=== PATIENT | female | born 1930 | race Caucasian/White ===

== ENCOUNTER 2018-03-07 16:53 | Observation (INO) ==
[2018-03-07] MEDS ORDERED: Sodium Chlor 0.9% Inj 500 ML IV.SIG SCH (18:00)
[2018-03-07 18:38] LABS: Baso # (Auto) 0.1 th/mm3 (0.0-0.2); Baso % (Auto) 0.6 % (0.0-2.0); Eos % (Auto) 0.2 % (0.0-4.0); Hematocrit 26.7 % (35.0-46.0); Hemoglobin 9.9 gm/dL (11.6-15.3); Lymph # (Auto) 2.4 th/mm3 (1.0-4.8); Lymph % (Auto) 16.9 % (9.0-44.0); Mean Corpuscular Hemoglobin 34.2 pg (27.0-34.0); Mean Corpuscular Volume 92.6 fL (80.0-100.0); Mean Platelet Volume 7.5 fL (7.0-11.0); Mono # (Auto) 1.3 th/mm3 (0.0-0.9); Neut # (Auto) 10.5 th/mm3 (1.8-7.7); Neut % (Auto) 73.3 % (16.0-70.0); Platelet Count 384 th/mm3 (150-450); Red Blood Count 2.89 mil/mm3 (4.00-5.30); Red Cell Distribution Width 13.7 % (11.6-17.2); White Blood Count 14.3 th/mm3 (4.0-11.0)
--- NOTE | 2018-03-07 18:41 | XR ---
EXAM DATE: 03/07/2018 5:36 PM EDT AGE/SEX: 87 years / Female INDICATIONS: Short of breath. CLINICAL DATA: This is the patient's initial encounter. Patient reports that signs and symptoms have been present for 1 day and indicates a pain score of 0/10. MEDICAL/SURGICAL HISTORY: Non-responsive. Non-responsive. COMPARISON: No prior exams available for comparison. FINDINGS: Trace atelectasis seen left base. No pleural effusion demonstrated. No pneumothorax. Heart size within normal limits. Thoracic aorta is tortuous and atherosclerotic. CONCLUSION: Mild left base atelectasis. Electronically signed by: Geraldo Menjivar MD 03/07/2018 6:39 PM EDT
[2018-03-07 18:45] LABS: Bacteria,Urine Rare /hpf; Bilirubin,Urine Negative (Negative); Clarity,Urine Clear (Clear); Color,Urine Yellow (Yellw/Straw); Glucose,Urine (UA) Negative (Negative); Hyaline Casts,Urine 3 /lpf (0-3); Leukocyte Esterase,Urine Small (Negative); Nitrite,Urine Negative (Negative); Specific Gravity,Urine 1.008 (1.002-1.035)
[2018-03-07 19:02] LABS: Alanine Aminotransferase 25 U/L (10-53); Albumin 2.9 g/dL (3.4-5.0); Anion Gap 14 meq/L (5-15); Aspartate Aminotransferase 34 U/L (15-37); Blood Urea Nitrogen 64 mg/dL (7-18); Calcium 8.9 mg/dL (8.5-10.1); Chloride 93 meq/L (98-107); Glomerular Filtration Rate 21 mL/min (>89); Glucose,Random 115 mg/dL (74-106); Sodium 131 meq/L (136-145)
[2018-03-07 19:08] LABS: Potassium 2.9 meq/L (3.5-5.1)
[2018-03-07 19:14] LABS: Alkaline Phosphatase 167 U/L (45-117); Total Protein 6.5 g/dL (6.4-8.2); Troponin I 0.11 ng/mL (0.02-0.05)
--- NOTE | 2018-03-07 19:29 | CT ---
EXAM DATE: 03/07/2018 6:30 PM EDT AGE/SEX: 87 years / Female INDICATIONS: Altered mental status. CLINICAL DATA: This is the patient's initial encounter. Patient reports that signs and symptoms have been present for 1 day and indicates a pain score of 0/10. MEDICAL/SURGICAL HISTORY: None. None. RADIATION DOSE: 56.35 CTDI (mGy) COMPARISON: No prior exams available for comparison. TECHNIQUE: CT of the head without contrast. Using automated exposure control and adjustment of the mA and/or kV according to patient size, radiation dose was kept as low as reasonably achievable to ob tain optimal diagnostic quality images. DICOM format image data is available electronically for revi ew and comparison. FINDINGS: Cerebrum: The ventricles are normal for age. No evidence of midline shift, mass lesion, hemorrhage or acute infarction. No extraaxial fluid collections are seen. Chronic appearing low-attenuation see n in the periventricular white matter. Posterior Fossa: The cerebellum and brainstem are intact. The 4th ventricle is midline. The cerebe llopontine angle is unremarkable. Extracranial: The visualized portion of the orbits is intact. Skull: The calvaria is intact. No evidence of skull fracture. CONCLUSION: 1. No acute intracranial abnormality. 2. Chronic white matter changes. . Electronically signed by: Geraldo Menjivar MD 03/07/2018 7:28 PM EDT
[2018-03-07] MEDS ORDERED: Aspirin 325 MG Tablet PO ONE (19:52)
--- NOTE | 2018-03-07 20:04 | ED ---
HPI General Chief complaint: Recheck/Abnormal Lab/Rx Stated complaint: Abnormal Labs Time Seen by Provider: 03/07/18 17:19 Source: patient, RN notes reviewed, old records reviewed and other (med one) Mode of arrival: other (med one) Limitations: altered mental status History of Present Illness HPI narrative: She is now been acting herself. Apparently per the blood work she was [id number] female that presents to the ED for evaluation of abnormal labs. Patient was sent here by [facility] for evaluation of this. Patient came here from a half-way. Apparently she had blood work that showed that she was hyponatremic and had a slightly elevated white blood cell count. Patient herself has no complaints and states that she is cold and she wants that she. Other than this she does not really complain of anything. No abdominal pain. She does state however that she feels "not well". When asked what she means by this she will not really give me any information. Per the report from the half-way apparently she has been more confused and altered. She has a history of blindness, COPD as well as hypertension. Unclear as to how long the confusion has been going but per report given probably couple of days. Patient herself does not really complain of anything other than wanting her sheets. History is somewhat hard to get from the patient. She denies any chest pain or shortness of breath. No diarrhea. No bowel movement issues. No fevers chills or sweats. No cough or runny nose. Related Data Home Medications Medication Instructions Recorded Confirmed acetaminophen [Tylenol] 650 mg PO Q4H PRN 03/07/18 03/07/18 albuterol sulfate [Ventolin HFA] 1 puff INHALATION Q2HR PRN 03/07/18 03/07/18 aspirin 81 mg PO DAILY 03/07/18 03/07/18 cholecalciferol (vitamin D3) 1,000 unit PO DAILY 03/07/18 03/07/18 [Vitamin D3] fludrocortisone 0.1 mg PO DAILY 03/07/18 03/07/18 furosemide [Lasix] 40 mg PO DAILY 03/07/18 03/07/18 ginkgo biloba 60 mg PO DAILY 03/07/18 03/07/18 ibuprofen 600 mg PO TID 03/07/18 03/07/18 ipratropium-albuterol 3 ml INHALATION Q3HR PRN 03/07/18 03/07/18 loperamide 2 mg PO Q6HR PRN 03/07/18 03/07/18 metolazone 5 mg PO 2XWEEK 03/07/18 03/07/18 metoprolol tartrate 50 mg PO BID 03/07/18 03/07/18 multivitamin 1 tab PO DAILY 03/07/18 03/07/18 potassium chloride 20 meq PO TID 03/07/18 03/07/18 simethicone 160 mg PO Q6HR PRN 03/07/18 03/07/18 sodium chloride 1,000 mg PO TID 03/07/18 03/07/18 temazepam [Restoril] 15 mg PO HS 03/07/18 03/07/18 trazodone 75 mg PO HS 03/07/18 03/07/18 umeclidinium-vilanterol [Anoro 1 puff INHALATION DAILY 03/07/18 03/07/18 Ellipta] Allergies Allergy/AdvReac Type Severity Reaction Status Date / Time morphine Allergy Unknown unknown Verified 03/07/18 17:36 Sulfa (Sulfonamide Allergy Unknown unknown Verified 03/07/18 17:36 Antibiotics) Review of Systems ROS: all other systems reviewed are negative [facility] Medical History Medical History Blind (Acute) COPD (chronic obstructive pulmonary disease) (Acute) Chronic kidney disease (CKD) (Acute) Emphysema of lung (Acute) HTN (hypertension) (Acute) Mitral valve insufficiency (Acute) Surgical history unknown (Acute) Family History Family History Other Family history unknown Social History Social History Smoking Status: Unknown if ever smoked How Often Do You Have a Drink Containing Alcohol: Unable to Obtain Recent Travel in [place] within the Last 8 Weeks: No Recent Out of Country Travel within the Last 8 Weeks: No Immunization History Tetanus Immunization: Unable to Assess Hx Influenza Vaccine This Season: Unable to Assess Exam Narrative Exam Narrative: GENERAL: Well appearing SKIN: Focused skin assessment warm/dry. HEAD: Atraumatic. Normocephalic. EYES: Pupils equal and round. No scleral icterus. No injection or drainage. ENT: No nasal bleeding or discharge. Mucous membranes pink and moist. Tongue is midline. No uvula deviation. NECK: Trachea midline. No JVD. CARDIOVASCULAR: Regular rate and rhythm. No murmur appreciated. RESPIRATORY: No accessory muscle use. Clear to auscultation. Breath sounds equal bilaterally. GASTROINTESTINAL: Abdomen soft, non-tender, nondistended. Hepatic and splenic margins not palpable. MUSCULOSKELETAL: No obvious deformities. No clubbing. No cyanosis. No edema. Full range of motion of the upper and lower extremities bilaterally. 2+ pulses bilaterally. NEUROLOGICAL: Awake and alert. No obvious cranial nerve deficits. Motor grossly within normal limits. Normal speech. PSYCHIATRIC: Altered mood and affect; insight and judgment normal. Course Initial Documented Vital Signs Temperature 98.4 F 03/07/18 17:40 Pulse Rate 75 03/07/18 17:40 Respiratory Rate 19 03/07/18 17:40 Blood Pressure 140/60 03/07/18 17:40 Pulse Oximetry 100 03/07/18 17:40 Last Documented Vital Signs Temperature 98.4 F 03/07/18 17:40 Pulse Rate 75 03/07/18 19:00 Respiratory Rate 24 03/07/18 19:00 Blood Pressure 158/69 H 03/07/18 19:00 Pulse Oximetry 98 03/07/18 19:00 Medical Decision Making THUAN Attestation THUAN supervised visit: Yes Attestation: I, Dr. Tang, have reviewed the advance practice practitioner's documentation and am in agreement, met with the patient face to face, made the diagnosis, and the medical decision making was done by me. The patient was initially evaluated by Vipul, the THUAN. Please see their complete history and physical. *My assessment and Findings: The patient presents with a history of being sent by [employer] to the emergency department related to abnormal labs that include hyponatremia with altered mentation. During the course of the patient's emergency department visit, the patient's history, examination, and differential diagnosis were reviewed with the patient. The patient was placed on a advertising specialist with oximetry and frequent blood pressure monitoring. The patient had IV access obtained and blood work sent for analysis. The patient was initially provided normal saline at 500 mL bolus x1, after laboratory studies were reviewed potassium was administered p.o. for hypokalemia. For minimally elevated troponin I aspirin 325 mg was administered p.o. x1, for bacteriuria Rocephin 1 g IV was administered. The patient's studies were reviewed and remarkable for .a leukocytosis of 14.3 with a left shift, neutrophil predominance of 73.3, Sodium on chemistry was 131 , BUN is 64, creatinine 2.24 which is worsened compared to prior levels consistent with an acute kidney injury, lactic acid within normal limits at 1.2 , troponin I 0.11 which could be related to the patient's renal insufficiency. This will be trended. Urinalysis shows small leukocyte esterase rare bacteria. A chest x-ray showed mild left base atelectasis, CT scan of the brain showed no acute abnormality. The patient will be admitted to the hospital for altered mentation, acute on chronic kidney injury, leukocytosis with bacteriuria. The patient's results were discussed with the patient, including the plan of care. I explained that further testing and/ or monitoring is indicated based on the patient's history, examination, and/ or laboratory findings. Therefore, I recommended admission for additional evaluation. The patient expressed understanding and was agreeable with this plan. The patient was admitted to the hospital in guarded condition and sent to a bed under the care of the [facility] service. MDM Narrative Medical decision making narrative: 87-year-old female that presents to the ED for evaluation of confusion abnormal labs. Patient was properly examined and was found to have signs and symptoms of unclear etiology. She does appear to be somewhat altered but unclear as to how long this been going on for. Labs and imaging were ordered. Labs and imaging were positive for what appears to be bacteriuria, elevated troponin and what appears to be chronic kidney disease. Unclear as to the source of confusion but could be related to infection. Do not have anything to evaluate for the positive troponin and likely secondary to the kidney disease. I do recommend trending troponins as she is altered. Patient was started ceftriaxone and fluids given. Patient will be admitted to Dr. Castillo who agreed to admission for office. Medical Screen Exam Complete: Yes Emergency Medical Condition: Yes Differential Diagnosis Differential Diagnosis: Altered mental status versus UTI versus infection versus electron abnormality versus n STEMI versus STEMI Medical Records Medical records reviewed: Yes I reviewed the patient's medical records. Lab Data Lab results reviewed: Yes I reviewed the patient's lab results. Lab results narrative: UA did show some bacteria otherwise unremarkable. Lactic acid within normal limits. Troponin slightly elevated. Result diagrams: 03/07/18 18:00 03/07/18 18:00 Lab Results 03/07/18 03/07/18 03/07/18 Range/Units 18:00 18:00 18:05 WBC 14.3 H (4.0-11.0) th/mm3 RBC 2.89 L (4.00-5.30) mil/mm3 Hgb 9.9 L (11.6-15.3) gm/dL Hct 26.7 L (35.0-46.0) % MCV 92.6 (80.0-100.0) fL MCH 34.2 H (27.0-34.0) pg MCHC 37.0 H (32.0-36.0) % RDW 13.7 (11.6-17.2) % Plt Count 384 (150-450) th/mm3 MPV 7.5 (7.0-11.0) fL Prelim Diff (Auto) Slide review pending Neut % (Auto) 73.3 H (16.0-70.0) % Lymph % (Auto) 16.9 (9.0-44.0) % Schleicher % (Auto) 9.0 H (0.0-8.0) % Eos % (Auto) 0.2 (0.0-4.0) % Baso % (Auto) 0.6 (0.0-2.0) % Neut # (Auto) 10.5 H (1.8-7.7) th/mm3 Lymph # (Auto) 2.4 (1.0-4.8) th/mm3 Schleicher # (Auto) 1.3 H (0.0-0.9) th/mm3 Eos # (Auto) 0.0 (0.0-0.4) th/mm3 Baso # (Auto) 0.1 (0.0-0.2) th/mm3 WBC Differential . Diff Scan Auto diff confirmed Differential Comment . Sodium 131 L (136-145) meq/L Potassium 2.9 L* (3.5-5.1) meq/L Chloride 93 L (98-107) meq/L Carbon Dioxide 24.0 (21.0-32.0) meq/L Anion Gap 14 (5-15) meq/L BUN 64 H (7-18) mg/dL Creatinine 2.24 H (0.50-1.00) mg/dL Estimated GFR 21 L (>89) mL/min Random Glucose 115 H (74-106) mg/dL Lactic Acid (0.4-2.0) mmol/L Calcium 8.9 (8.5-10.1) mg/dL Total Bilirubin 0.4 (0.2-1.0) mg/dL AST 34 (15-37) U/L ALT 25 (10-53) U/L Alkaline Phosphatase 167 H (45-117) U/L Troponin I 0.11 H (0.02-0.05) ng/mL Total Protein 6.5 (6.4-8.2) g/dL Albumin 2.9 L (3.4-5.0) g/dL TSH 1.220 (0.358-3.740) uIU/mL Urine Color Yellow (Yellw/Straw) Urine Clarity Clear (Clear) Urine pH 5.0 (5.0-8.5) Ur Specific [place] 1.008 (1.002-1.035) Urine Protein Negative (Neg-Trace) mg/dL Urine Glucose (UA) Negative (Negative) mg/dL Urine Ketones Negative (Negative) mg/dL Urine Occult Blood Negative (Negative) Urine Nitrate Negative (Negative) Urine Bilirubin Negative (Negative) Urine Urobilinogen Less than 2 (Less than 2) mg/dL Ur Leukocyte Esterase Small H (Negative) Urine WBC 2 (0-5) /hpf Urine Bacteria Rare H (None) /hpf Hyaline Casts 3 (0-3) /lpf Micro UA Comment Cath-culture ind Ur Microscopic Review Not Reportable Urine Culture Comments Cath-cult indicated 03/07/18 Range/Units 19:30 WBC (4.0-11.0) th/mm3 RBC (4.00-5.30) mil/mm3 Hgb (11.6-15.3) gm/dL Hct (35.0-46.0) % MCV (80.0-100.0) fL MCH (27.0-34.0) pg MCHC (32.0-36.0) % RDW (11.6-17.2) % Plt Count (150-450) th/mm3 MPV (7.0-11.0) fL Prelim Diff (Auto) Neut % (Auto) (16.0-70.0) % Lymph % (Auto) (9.0-44.0) % Schleicher % (Auto) (0.0-8.0) % Eos % (Auto) (0.0-4.0) % Baso % (Auto) (0.0-2.0) % Neut # (Auto) (1.8-7.7) th/mm3 Lymph # (Auto) (1.0-4.8) th/mm3 Schleicher # (Auto) (0.0-0.9) th/mm3 Eos # (Auto) (0.0-0.4) th/mm3 Baso # (Auto) (0.0-0.2) th/mm3 WBC Differential Diff Scan Differential Comment Sodium (136-145) meq/L Potassium (3.5-5.1) meq/L Chloride (98-107) meq/L Carbon Dioxide (21.0-32.0) meq/L Anion Gap (5-15) meq/L BUN (7-18) mg/dL Creatinine (0.50-1.00) mg/dL Estimated GFR (>89) mL/min Random Glucose (74-106) mg/dL Lactic Acid 1.2 (0.4-2.0) mmol/L Calcium (8.5-10.1) mg/dL Total Bilirubin (0.2-1.0) mg/dL AST (15-37) U/L ALT (10-53) U/L Alkaline Phosphatase (45-117) U/L Troponin I (0.02-0.05) ng/mL Total Protein (6.4-8.2) g/dL Albumin (3.4-5.0) g/dL TSH (0.358-3.740) uIU/mL Urine Color (Yellw/Straw) Urine Clarity (Clear) Urine pH (5.0-8.5) Ur Specific [place] (1.002-1.035) Urine Protein (Neg-Trace) mg/dL Urine Glucose (UA) (Negative) mg/dL Urine Ketones (Negative) mg/dL Urine Occult Blood (Negative) Urine Nitrate (Negative) Urine Bilirubin (Negative) Urine Urobilinogen (Less than 2) mg/dL Ur Leukocyte Esterase (Negative) Urine WBC (0-5) /hpf Urine Bacteria (None) /hpf Hyaline Casts (0-3) /lpf Micro UA Comment Ur Microscopic Review Urine Culture Comments Imaging Data Attestation: I personally reviewed and interpreted this imaging study as follows : Radiologist's impression: Chest X-Ray 03/07/18 17:36 CONCLUSION: Mild left base atelectasis. Head CT 03/07/18 17:36 CONCLUSION: 1. No acute intracranial abnormality. 2. Chronic white matter changes. . ECG Data Attestation: I personally reviewed and interpreted this ECG as follows: Interpretation: EKG showed sinus rhythm with no sign of acute ischemia or arrhythmia. No sign of ST elevation. Discharge Plan Discharge Disposition Patient Disposition: 30 Still Patient Discharge Details Diagnosis: Altered mental status, Bacteriuria, Elevated troponin I level Physicians Team ED Provider: Cris Tang ED Midlevel Provider: Vipul Barnard Primary Care Provider: Marcelino Mosquera Attending Provider: Yaneli Castillo Status ED Status: Admitted Observation Patient
[2018-03-07] MEDS ORDERED: Bisacodyl 10 MG Supp RECTAL PRN (20:43)
[2018-03-07] MEDS ORDERED: Acetaminophen 325 MG Tablet PO PRN (20:43)
--- NOTE | 2018-03-07 21:01 | P.HP ---
History of Present Illness Service: [facility] Primary Care Physician: Marcelino Mosquera MD History of Present Illness: 87-year-old female with a past medical history significant for blindness, chronic kidney disease, COPD and hypertension presents to the emergency department for the evaluation of altered mental status abnormal outpatient laboratory values. The patient was in her care home facility when outpatient lab work was done that showed hyponatremia and a mild leukocytosis. Per senior care reports, the patient is also been acting more confused over the past 2 days. During her interview, the patient states that she feels "fine ". She does not know why she is in the hospital. She is oriented to location, self and year. She denies any chest pain or shortness of breath. No abdominal pain. No dysuria. No nausea/vomiting/diarrhea. No fever/chills. No lateralizing signs/symptoms. Of note, the patient's son was contacted who stated that the patient has been acting erratically since losing her oldest daughter approximately 1 month ago. He states that she has had poor oral intake and poor sleep since that time. Review of Systems All other systems reviewed negative except as stated in HPI PMFSH - History History Provided By: Patient - Medical History Medical History: Medical History (Last Updated 03/07/18 @ 20:49 by Yaneli Castillo MD) Blind COPD (chronic obstructive pulmonary disease) Chronic kidney disease (CKD) Emphysema of lung HTN (hypertension) Mitral valve insufficiency Surgical history unknown - Family History Family History: Family History (Last Updated 03/07/18 @ 20:49 by Yaneli Castillo MD) Other Family history unknown - Tobacco History Smoking Status: Unknown if ever smoked - Alcohol History How Often Do You Have a Drink Containing Alcohol: Unable to Obtain - Travel History Recent Travel in the [facility] Within the Last 8 Weeks: No Recent Travel Out of the Country Within the Last 8 Weeks: No - Immunization History Tetanus Immunization: Unable to Assess Hx Influenza Vaccine This Season: Unable to Assess Medications and Allergies Active Medications: Active Medications Sodium Chloride (Ns Inj) 500 mls @ 0 mls/hr IV.SIG BOLUS RADHA Last Infusion: 03/07/18 20:32 Dose: Infused Allergies Allergy/AdvReac Type Severity Reaction Status Date / Time morphine Allergy Unknown unknown Verified 03/07/18 17:36 Sulfa (Sulfonamide Allergy Unknown unknown Verified 03/07/18 17:36 Antibiotics) Home Medications Medication Instructions Recorded Confirmed Type acetaminophen [Tylenol] 650 mg PO Q4H PRN 03/07/18 03/07/18 History albuterol sulfate [Ventolin HFA] 1 puff INHALATION Q2HR PRN 03/07/18 03/07/18 History aspirin 81 mg PO DAILY 03/07/18 03/07/18 History cholecalciferol (vitamin D3) 1,000 unit PO DAILY 03/07/18 03/07/18 History [Vitamin D3] fludrocortisone 0.1 mg PO DAILY 03/07/18 03/07/18 History furosemide [Lasix] 40 mg PO DAILY 03/07/18 03/07/18 History ginkgo biloba 60 mg PO DAILY 03/07/18 03/07/18 History ibuprofen 600 mg PO TID 03/07/18 03/07/18 History ipratropium-albuterol 3 ml INHALATION Q3HR PRN 03/07/18 03/07/18 History loperamide 2 mg PO Q6HR PRN 03/07/18 03/07/18 History metolazone 5 mg PO 2XWEEK 03/07/18 03/07/18 History metoprolol tartrate 50 mg PO BID 03/07/18 03/07/18 History multivitamin 1 tab PO DAILY 03/07/18 03/07/18 History potassium chloride 20 meq PO TID 03/07/18 03/07/18 History simethicone 160 mg PO Q6HR PRN 03/07/18 03/07/18 History sodium chloride 1,000 mg PO TID 03/07/18 03/07/18 History temazepam [Restoril] 15 mg PO HS 03/07/18 03/07/18 History trazodone 75 mg PO HS 03/07/18 03/07/18 History umeclidinium-vilanterol [Anoro 1 puff INHALATION DAILY 03/07/18 03/07/18 History Ellipta] Exam Vital signs: Vital Signs 03/07/18 17:40 03/07/18 18:00 03/07/18 19:00 Temperature 98.4 F Pulse Rate 75 78 75 Respiratory Rate 19 16 24 Blood Pressure 140/60 158/60 H 158/69 H Pulse Oximetry 100 98 98 Intake & Output 03/07/18 03/07/18 03/08/18 06:59 18:59 06:59 Intake Total 500 / 500 Balance 500 / 500 Weight 80.385 kg Intake: IV 500 / 500 NS Inj 500 ML @ Wide Open IV. 500 / 500 SIG BOLUS [facility] Rx#:[id number] Narrative: Gen.: No acute distress Head: Normocephalic. Atraumatic. EENT: Pupils equal round and reactive to light. Nose without drainage. Airway intact. Throat without injection. Cardiovascular: Regular rate and rhythm. No murmurs, rubs or gallops. Respiratory: Lungs clear to auscultation bilaterally. No wheezes or rhonchi. Abdomen: Soft, nontender, nondistended. No peritoneal signs. Musculoskeletal: No gross deformities. No edema. Skin: No obvious rashes or erythema. Neuro: Sensory and motor grossly intact. Cranial nerves II through XII grossly intact. Oriented to person, place and time. Results - Labs CBC & Chem 7: 03/07/18 18:00 03/07/18 18:00 Labs: Laboratory Results - last 24 hr 03/07/18 03/07/18 03/07/18 18:00 18:00 18:05 WBC 14.3 H RBC 2.89 L Hgb 9.9 L Hct 26.7 L MCV 92.6 MCH 34.2 H MCHC 37.0 H RDW 13.7 Plt Count 384 MPV 7.5 Prelim Diff (Auto) Slide review pending Neut % (Auto) 73.3 H Lymph % (Auto) 16.9 [place] % (Auto) 9.0 H Eos % (Auto) 0.2 Baso % (Auto) 0.6 Neut # (Auto) 10.5 H Lymph # (Auto) 2.4 [place] # (Auto) 1.3 H Eos # (Auto) 0.0 Baso # (Auto) 0.1 WBC Differential . Diff Scan Auto diff confirmed Differential Comment . Sodium 131 L Potassium 2.9 L* Chloride 93 L Carbon Dioxide 24.0 Anion Gap 14 BUN 64 H Creatinine 2.24 H Estimated GFR 21 L Random Glucose 115 H Lactic Acid Calcium 8.9 Total Bilirubin 0.4 AST 34 ALT 25 Alkaline Phosphatase 167 H Troponin I 0.11 H Total Protein 6.5 Albumin 2.9 L TSH 1.220 Urine Color Yellow Urine Clarity Clear Urine pH 5.0 Ur Specific [place] 1.008 Urine Protein Negative Urine Glucose (UA) Negative Urine Ketones Negative Urine Occult Blood Negative Urine Nitrate Negative Urine Bilirubin Negative Urine Urobilinogen Less than 2 Ur Leukocyte Esterase Small H Urine WBC 2 Urine Bacteria Rare H Hyaline Casts 3 Micro UA Comment Cath-culture ind Ur Microscopic Review Not Reportable Urine Culture Comments Cath-cult indicated 03/07/18 19:30 WBC RBC Hgb Hct MCV MCH MCHC RDW Plt Count MPV Prelim Diff (Auto) Neut % (Auto) Lymph % (Auto) [place] % (Auto) Eos % (Auto) Baso % (Auto) Neut # (Auto) Lymph # (Auto) [place] # (Auto) Eos # (Auto) Baso # (Auto) WBC Differential Diff Scan Differential Comment Sodium Potassium Chloride Carbon Dioxide Anion Gap BUN Creatinine Estimated GFR Random Glucose Lactic Acid 1.2 Calcium Total Bilirubin AST ALT Alkaline Phosphatase Troponin I Total Protein Albumin TSH Urine Color Urine Clarity Urine pH Ur Specific [place] Urine Protein Urine Glucose (UA) Urine Ketones Urine Occult Blood Urine Nitrate Urine Bilirubin Urine Urobilinogen Ur Leukocyte Esterase Urine WBC Urine Bacteria Hyaline Casts Micro UA Comment Ur Microscopic Review Urine Culture Comments - Imaging Impressions Chest X-Ray 03/07/18 17:36 CONCLUSION: Mild left base atelectasis. Head CT 03/07/18 17:36 CONCLUSION: 1. No acute intracranial abnormality. 2. Chronic white matter changes. . Caprini VTE Risk Assessment Caprini VTE Risk Assessment: Moderate/High Risk (score >= 2) Caprini Risk Assessment Model: Point Value = 1 Point Value = 2 Point Value = 3 Point Value = 5 Age 41-60 Minor surgery BMI > 25 kg/m2 Swollen legs Varicose veins or History of unexplained or recurrent spontaneous Oral contraceptives or hormone replacement Sepsis (< 1 month) Serious lung disease, including pneumonia (< 1 month) Abnormal pulmonary function Acute myocardial infarction Congestive heart failure (< 1 month) History of inflammatory bowel disease Medical patient at bed rest Age 61-74 Arthroscopic surgery Major open surgery (> 45 min) Laparoscopic surgery (> 45 min) Malignancy Confined to bed (> 72 hours) Immobilizing plaster cast Central venous access Age >= 75 History of VTE Family history of VTE Factor V Leiden Prothrombin [id number] Lupus anticoagulant Anticardiolipin antibodies Elevated serum homocysteine Heparin-induced thrombocytopenia Other congenital or acquired thrombophilia Stroke (< 1 month) Elective arthroplasty Hip, pelvis, or leg fracture Acute spinal cord injury (< 1 month) Prophylaxis Regimen: Total Risk Factor Score Risk Level Prophylaxis Regimen 0-1 Low Early ambulation 2 Moderate Order ONE of the following: *Sequential Compression Device (SCD) *Heparin 5000 units SQ BID 3-4 Higher Order ONE of the following medications: *Heparin 5000 units SQ TID *Enoxaparin/Lovenox 40 mg SQ daily (WT < 150 kg, CrCl > 30 mL/min) *Enoxaparin/Lovenox 30 mg SQ daily (WT < 150 kg, CrCl > 10-29 mL/min) *Enoxaparin/Lovenox 30 mg SQ BID (WT < 150 kg, CrCl > 30 mL/min) AND/OR *Sequential Compression Device (SCD) 5 or more Highest Order ONE of the following medications: *Heparin 5000 units SQ TID (Preferred with Epidurals) *Enoxaparin/Lovenox 40 mg SQ daily (WT < 150 kg, CrCl > 30 mL/min) *Enoxaparin/Lovenox 30 mg SQ daily (WT < 150 kg, CrCl > 10-29 mL/min) *Enoxaparin/Lovenox 30 mg SQ BID (WT < 150 kg, CrCl > 30 mL/min) AND *Sequential Compression Device (SCD) Assessment and Plan - Plan Assessment/plan: 1. Altered mental status Unclear etiology Suspect secondary to recent emotional stress of losing her eldest daughter Poor p.o. intake likely contributing Head CT negative for acute process UA with rare bacteria and small leukocyte esterase, cannot exclude urinary tract infection as cause Rocephin 2. Electrolyte abnormalities Patient mildly hyponatremic and hypokalemic Status post p.o. potassium repletion NS +20 KCl 3. ? UTI Plan as above 4. COPD Continue duo nebs as needed 5. Chronic kidney disease Creatinine 2.24, baseline unknown Monitor renal function 6. Elevated troponin Troponin 0.11 EKG negative for ischemic changes, personally reviewed ACS rule out pending; serial troponins/EKGs Likely secondary to renal insufficiency 7. Hypertension Continue home medications FEN N.p.o. Electrolytes: As above NS +20 KCl at 100 cc/hour Heparin
--- NOTE | 2018-03-07 21:52 | ECG ---
Date Performed: 03/07/2018 Time Performed: 18:38:21 PTAGE: 87 years EKG: Sinus rhythm LEFT VENTRICULAR HYPERTROPHY AND ST-T CHANGE ABNORMAL ECG NO PREVIOUS TRACING DOCTOR: Elen Senior Interpretating Date/Time 03/07/2018 21:50:17
[2018-03-07] MEDS: Senna/Docusate Sodium 8.6/50 MG Tablet PO SCH (23:23)
[2018-03-07] MEDS: traZODone 50 MG Tablet PO SCH (23:29)
[2018-03-07] MEDS: Temazepam 15 MG Capsule PO SCH (23:29)
[2018-03-07] MEDS: Metoprolol Tartrate 50 MG Tablet PO SCH (23:29)
[2018-03-07] MEDS: Heparin - SQ 10,000 UNITS/ML Vial SQ SCH (23:29)
[2018-03-08 00:38] LABS: Troponin I 0.1 ng/mL (0.02-0.05)
[2018-03-08] MEDS: Heparin - SQ 10,000 UNITS/ML Vial SQ SCH ×3 (05:39→21:47)
[2018-03-08 08:30] LABS: Baso # (Auto) 0.1 th/mm3 (0.0-0.2); Baso % (Auto) 0.6 % (0.0-2.0); Eos # (Auto) 0.1 th/mm3 (0.0-0.4); Eos % (Auto) 0.6 % (0.0-4.0); Hematocrit 28.4 % (35.0-46.0); Hemoglobin 9.6 gm/dL (11.6-15.3); Lymph % (Auto) 16.3 % (9.0-44.0); Mean Corpuscular HGB Conc 33.8 % (32.0-36.0); Mean Corpuscular Hemoglobin 31.5 pg (27.0-34.0); Mean Corpuscular Volume 93.4 fL (80.0-100.0); Mean Platelet Volume 7.6 fL (7.0-11.0); Mono % (Auto) 8.2 % (0.0-8.0); Neut % (Auto) 74.3 % (16.0-70.0); Platelet Count 426 th/mm3 (150-450); Red Blood Count 3.04 mil/mm3 (4.00-5.30); Red Cell Distribution Width 13.8 % (11.6-17.2); White Blood Count 12.1 th/mm3 (4.0-11.0)
[2018-03-08 08:55] LABS: Calcium 8.7 mg/dL (8.5-10.1); Carbon Dioxide 24.5 meq/L (21.0-32.0); Potassium 3.7 meq/L (3.5-5.1)
[2018-03-08 09:00] LABS: Troponin I 0.08 ng/mL (0.02-0.05)
[2018-03-08] MEDS ORDERED: Furosemide 40 MG Tablet PO SCH (09:00)
[2018-03-08] MEDS: Metoprolol Tartrate 50 MG Tablet PO SCH (09:48)
[2018-03-08] MEDS: Senna/Docusate Sodium 8.6/50 MG Tablet PO SCH ×2 (09:49→21:47)
[2018-03-08] MEDS ORDERED: Sodium Chloride 0.9% 2 ML Flush PRN IV.FLUSH (14:30)
--- NOTE | 2018-03-08 14:46 | P.PN ---
Subjective Interval history: Follow up for altered mental status as well as, acute kidney injury, electrolyte imbalance. Patient is currently resting in bed. She is pleasantly confused. She believes she is a 19-year-old female and lives with her parents. She denies any chest pain, shortness of breath, fever or chills. She, however , reports dysuria. Physical Exam Vital signs: Vital Signs 03/07/18 17:40 03/07/18 18:00 03/07/18 19:00 Temperature 98.4 F Pulse Rate 75 78 75 Respiratory Rate 19 16 24 Blood Pressure 140/60 158/60 H 158/69 H Pulse Oximetry 100 98 98 03/07/18 23:44 03/08/18 00:35 03/08/18 04:25 Temperature 98.0 F Pulse Rate 68 65 77 Respiratory Rate 16 16 Blood Pressure 152/65 H 133/61 Pulse Oximetry 98 95 03/08/18 07:42 03/08/18 09:00 03/08/18 12:00 Temperature 98.5 F 98.0 F Pulse Rate 71 68 67 Respiratory Rate 18 16 Blood Pressure 136/63 138/60 Pulse Oximetry 98 95 Intake & Output 03/07/18 03/08/18 03/08/18 18:59 06:59 18:59 Intake Total 600 / 600 1000 / 1000 Balance 600 / 600 1000 / 1000 Weight 80.385 kg 80.286 kg Intake: IV 600 / 600 1000 / 1000 NS + KCl 20 mEq Inj 1,000 ML @ 1000 / 1000 100 mls/hr IV.CONT .Q10H RADHA Rx #:[id number] NS Inj 500 ML @ Wide Open IV. 500 / 500 SIG BOLUS RADHA Rx#:[id number] Rocephin Inj 1,000 MG In NS Inj 100 / 100 100 ML @ 200 mls/hr IV.SIG ONCE ONE Rx#:[id number] Other: # Voids 1 Date of Last Bowel Movement 03/07/18 Weight On Admission 80.286 kg Narrative: GENERAL: Alert, NAD. Oriented to person. SKIN: Warm and dry. HEAD: Normocephalic. EYES: No scleral icterus. No injection or drainage. NECK: Supple, trachea midline. No JVD or lymphadenopathy. CARDIOVASCULAR: Regular rate and rhythm without murmurs, gallops, or rubs. RESPIRATORY: Breath sounds equal bilaterally. No accessory muscle use. GASTROINTESTINAL: Abdomen soft, non-tender, nondistended. MUSCULOSKELETAL: No cyanosis, or edema. BACK: Nontender without obvious deformity. No CVA tenderness. - Urinary Catheter Management Straight Cath placed during this visit: yes, but has since been removed by the nurse Reason for continuing: Not indwelling catheter Insertion date: 03/14/18 Insertion time: 18:20 Removal date: 03/07/18 Removal time: 18:21 Results - Labs CBC & Chem 7: 03/08/18 06:50 03/08/18 06:50 Laboratory Results - last 24 hr 03/07/18 03/07/18 03/07/18 18:00 18:00 18:05 WBC 14.3 H RBC 2.89 L Hgb 9.9 L Hct 26.7 L MCV 92.6 MCH 34.2 H MCHC 37.0 H RDW 13.7 Plt Count 384 MPV 7.5 Prelim Diff (Auto) Slide review pending Neut % (Auto) 73.3 H Lymph % (Auto) 16.9 [place] % (Auto) 9.0 H Eos % (Auto) 0.2 Baso % (Auto) 0.6 Neut # (Auto) 10.5 H Lymph # (Auto) 2.4 [place] # (Auto) 1.3 H Eos # (Auto) 0.0 Baso # (Auto) 0.1 WBC Differential . Diff Scan Auto diff confirmed Differential Comment . Sodium 131 L Potassium 2.9 L* Chloride 93 L Carbon Dioxide 24.0 Anion Gap 14 BUN 64 H Creatinine 2.24 H Estimated GFR 21 L Random Glucose 115 H Lactic Acid Calcium 8.9 Total Bilirubin 0.4 AST 34 ALT 25 Alkaline Phosphatase 167 H Total Creatine Kinase Troponin I 0.11 H Total Protein 6.5 Albumin 2.9 L TSH 1.220 Urine Color Yellow Urine Clarity Clear Urine pH 5.0 Ur Specific [place] 1.008 Urine Protein Negative Urine Glucose (UA) Negative Urine Ketones Negative Urine Occult Blood Negative Urine Nitrate Negative Urine Bilirubin Negative Urine Urobilinogen Less than 2 Ur Leukocyte Esterase Small H Urine WBC 2 Urine Bacteria Rare H Hyaline Casts 3 Micro UA Comment Cath-culture ind Ur Microscopic Review Not Reportable Urine Culture Comments Cath-cult indicated 03/07/18 03/08/18 03/08/18 19:30 00:10 06:50 WBC 12.1 H RBC 3.04 L Hgb 9.6 L Hct 28.4 L MCV 93.4 MCH 31.5 MCHC 33.8 RDW 13.8 Plt Count 426 MPV 7.6 Prelim Diff (Auto) Neut % (Auto) 74.3 H Lymph % (Auto) 16.3 [place] % (Auto) 8.2 H Eos % (Auto) 0.6 Baso % (Auto) 0.6 Neut # (Auto) 9.0 H Lymph # (Auto) 2.0 [place] # (Auto) 1.0 H Eos # (Auto) 0.1 Baso # (Auto) 0.1 WBC Differential . Diff Scan Differential Comment Auto diff final Sodium Potassium Chloride Carbon Dioxide Anion Gap BUN Creatinine Estimated GFR Random Glucose Lactic Acid 1.2 Calcium Total Bilirubin AST ALT Alkaline Phosphatase Total Creatine Kinase 81 Troponin I 0.10 H Total Protein Albumin TSH Urine Color Urine Clarity Urine pH Ur Specific [place] Urine Protein Urine Glucose (UA) Urine Ketones Urine Occult Blood Urine Nitrate Urine Bilirubin Urine Urobilinogen Ur Leukocyte Esterase Urine WBC Urine Bacteria Hyaline Casts Micro UA Comment Ur Microscopic Review Urine Culture Comments 03/08/18 06:50 WBC RBC Hgb Hct MCV MCH MCHC RDW Plt Count MPV Prelim Diff (Auto) Neut % (Auto) Lymph % (Auto) [place] % (Auto) Eos % (Auto) Baso % (Auto) Neut # (Auto) Lymph # (Auto) [place] # (Auto) Eos # (Auto) Baso # (Auto) WBC Differential Diff Scan Differential Comment Sodium 137 Potassium 3.7 D Chloride 101 D Carbon Dioxide 24.5 Anion Gap 12 BUN 59 H Creatinine 1.99 H Estimated GFR 24 L Random Glucose 91 Lactic Acid Calcium 8.7 Total Bilirubin AST ALT Alkaline Phosphatase Total Creatine Kinase 61 Troponin I 0.08 H Total Protein Albumin TSH Urine Color Urine Clarity Urine pH Ur Specific [place] Urine Protein Urine Glucose (UA) Urine Ketones Urine Occult Blood Urine Nitrate Urine Bilirubin Urine Urobilinogen Ur Leukocyte Esterase Urine WBC Urine Bacteria Hyaline Casts Micro UA Comment Ur Microscopic Review Urine Culture Comments Microbiology 03/07/18 18:05 Catheterized Urine Urine Culture - Preliminary No growth in 24 hours 03/07/18 19:30 Blood - Peripheral Aerobic Blood Culture - Preliminary No growth in 1 day 03/07/18 19:30 Blood - Peripheral Anaerobic Blood Culture - Preliminary No growth in 1 day 03/07/18 19:25 Blood - Peripheral Aerobic Blood Culture - Preliminary No growth in 1 day 03/07/18 19:25 Blood - Peripheral Anaerobic Blood Culture - Preliminary No growth in 1 day - Imaging Impressions Chest X-Ray 03/07/18 17:36 CONCLUSION: Mild left base atelectasis. Head CT 03/07/18 17:36 CONCLUSION: 1. No acute intracranial abnormality. 2. Chronic white matter changes. . Assessment and Plan - Plan Ms. Marvin is a pleasant 87-year-old female with a history of blindness, COPD, hypertension who presented to the emergency department from her halfway due to increased confusion, altered mental status and lab abnormalities including neutropenia. Patient was found to have hyponatremia as well as acute kidney injury. Evidence of UTI was also noted. Acute metabolic encephalopathy -Possibly due to acute kidney injury, urinary tract infection. -We will continue to monitor with supportive care and antibiotics as well as fluid. Probable urinary tract infection -Follow culture results. Continue ceftriaxone 1 g every 24 hours. Acute kidney injury Hyponatremia Hypokalemia -Creatinine 2.24, sodium 131, potassium 2.9 on admission. -We will discontinue Lasix as well as metolazone for now. -Continue Fludrocortisone 0.1mg Qday. -Creatinine improved to 1.99. Potassium improved to 3.7. -We will discontinue NS+KCL. Will continue NS only. Mild elevated troponin -Likely due to CANDICE. No further work up. DNR. Heparin SQ.
[2018-03-08] MEDS: Sod Chloride 0.9% Inj 1,000 ML IV.CONT SCH (15:11)
--- NOTE | 2018-03-08 21:01 | ECG ---
Date Performed: 03/08/2018 Time Performed: 05:41:16 PTAGE: 87 years EKG: Sinus rhythm LEFT VENTRICULAR HYPERTROPHY AND ST-T CHANGE ABNORMAL ECG PREVIOUS TRACING : 03/07/2018 18.38 Since the previous tracing, no significant change noted DOCTOR: Elen Senior Interpretating Date/Time 03/08/2018 21:00:30
[2018-03-08] MEDS: traZODone 50 MG Tablet PO SCH (21:47)
[2018-03-08] MEDS: Temazepam 15 MG Capsule PO SCH (21:47)
[2018-03-08] MEDS: Sodium Chloride 0.9% 2 ML Flush BID IV.FLUSH SCH (22:15)
[2018-03-09] MEDS: Metoprolol Tartrate 50 MG Tablet PO SCH ×3 (00:08→20:09)
[2018-03-09] MEDS: Sod Chloride 0.9% Inj 1,000 ML IV.CONT SCH ×2 (06:40→11:00)
[2018-03-09] MEDS: Heparin - SQ 10,000 UNITS/ML Vial SQ SCH ×3 (06:48→21:46)
[2018-03-09] MEDS ORDERED: metOLazone 5 MG Tablet PO SCH (09:00)
[2018-03-09] MEDS: Sodium Chloride 0.9% 2 ML Flush BID IV.FLUSH SCH ×2 (09:33→20:09)
[2018-03-09] MEDS: Senna/Docusate Sodium 8.6/50 MG Tablet PO SCH ×2 (09:33→20:10)
[2018-03-09 09:37] LABS: Calcium 8.4 mg/dL (8.5-10.1); Carbon Dioxide 24.4 meq/L (21.0-32.0)
[2018-03-09 09:41] LABS: Potassium 2.8 meq/L (3.5-5.1)
[2018-03-09 11:14] LABS: Magnesium 1.8 mg/dL (1.5-2.5)
[2018-03-09] MEDS: Potassium Chlor 20 mEq Premix 20 MEQ/100 ML PIGGYBACK IV.SIG SCH ×2 (12:09→18:26)
[2018-03-09] MEDS ORDERED: Magnesium Sulfate Inj 2 GM in Sodium Chlor 0.9% Inj 96 ML IV.SIG ONE (13:00)
[2018-03-09] MEDS: QUEtiapine 25 MG Tablet PO SCH (14:49)
--- NOTE | 2018-03-09 15:28 | P.PN ---
Subjective Interval history: Follow up for altered mental status as well as, acute kidney injury, electrolyte imbalance. Patient is somewhat agitated today. She remains confused. Afebrile. Physical Exam Vital signs: Vital Signs 03/08/18 16:00 03/08/18 20:00 03/09/18 00:00 Temperature 98.8 F 98.2 F 98.1 F Pulse Rate 70 68 69 Respiratory Rate 16 16 22 Blood Pressure 149/65 H 93/48 L 134/62 Pulse Oximetry 98 99 96 03/09/18 04:00 03/09/18 07:29 03/09/18 07:36 Temperature 98.0 F 98.2 F Pulse Rate 76 66 57 L Respiratory Rate 16 16 Blood Pressure 121/58 L 131/60 Pulse Oximetry 99 99 03/09/18 09:00 03/09/18 11:57 Temperature 98.1 F Pulse Rate 69 62 Respiratory Rate 20 Blood Pressure 139/65 Pulse Oximetry 96 Intake & Output 03/08/18 03/09/18 03/09/18 18:59 06:59 18:59 Intake Total 0 / 2080 1100 / 1100 100 / 100 Output Total 320 / 320 Balance 2079 / 0 780 / 780 100 / 100 Weight 80.2 kg Intake: IV 1600 / 1600 1100 / 1100 100 / 100 NS + KCl 20 mEq Inj 1,000 ML @ 1600 / 1600 100 mls/hr IV.CONT .Q10H [facility] Rx #:[id number] NS Inj 1,000 ML @ 100 mls/hr IV 1000 / 1000 .CONT .Q10H [facility] Rx#:[id number] KCl 20 mEq Premix Inj 20 meq In 100 / 100 100 ml @ 50 mls/hr IV.SIG Q2H [facility] Rx#:[id number] Rocephin Inj 1,000 MG In NS Inj 100 / 100 100 ML @ 200 mls/hr IV.SIG Q24H [facility] Rx#:[id number] Oral 480 / 480 Output: Urine 320 / 320 Other: # Voids 3 # Urine Diapers 2 Date of Last Bowel Movement 03/08/18 # Bowel Movements 2 Narrative: GENERAL: Alert, NAD. Oriented to person. SKIN: Warm and dry. HEAD: Normocephalic. EYES: No scleral icterus. No injection or drainage. NECK: Supple, trachea midline. No JVD or lymphadenopathy. CARDIOVASCULAR: Regular rate and rhythm without murmurs, gallops, or rubs. RESPIRATORY: Breath sounds equal bilaterally. No accessory muscle use. GASTROINTESTINAL: Abdomen soft, non-tender, nondistended. MUSCULOSKELETAL: No cyanosis, or edema. BACK: Nontender without obvious deformity. No CVA tenderness. - Urinary Catheter Management Straight Cath placed during this visit: yes, but has since been removed by the nurse Reason for continuing: Not indwelling catheter Insertion date: 03/14/18 Insertion time: 18:20 Removal date: 03/07/18 Removal time: 18:21 Results - Labs CBC & Chem 7: 03/08/18 06:50 03/09/18 08:27 Laboratory Results - last 24 hr 03/09/18 03/09/18 08:27 08:27 Sodium 140 Potassium 2.8 L* D Chloride 104 Carbon Dioxide 24.4 Anion Gap 12 BUN 47 H Creatinine 1.68 H Estimated GFR 29 L Random Glucose 87 Calcium 8.4 L Magnesium 1.8 Cancelled Microbiology 03/07/18 19:30 Blood - Peripheral Aerobic Blood Culture - Preliminary No growth in 2 days 03/07/18 19:30 Blood - Peripheral Anaerobic Blood Culture - Preliminary No growth in 2 days 03/07/18 19:25 Blood - Peripheral Aerobic Blood Culture - Preliminary No growth in 2 days 03/07/18 19:25 Blood - Peripheral Anaerobic Blood Culture - Preliminary No growth in 2 days 03/07/18 18:05 Catheterized Urine Urine Culture - Final No growth in 48 hours Assessment and Plan - Plan Ms. Marvin is a pleasant 87-year-old female with a history of blindness, COPD, hypertension who presented to the emergency department from her [facility] due to increased confusion, altered mental status and lab abnormalities including neutropenia. Patient was found to have hyponatremia as well as acute kidney injury. Evidence of UTI was also noted. Acute metabolic encephalopathy -Possibly due to acute kidney injury, dehydration. -We will continue to monitor with supportive care. suspected urinary tract infection -Urine Cx negative. Discontinue abx. Acute kidney injury Hyponatremia Hypokalemia Hypomagnesemia -Creatinine 2.24, sodium 131, potassium 2.9 on admission. -Continue Fludrocortisone 0.1mg Qday. -Creatinine improved to 1.68. Potassium improved to 3.7 --> 2.8. -Will replace K+ with 40meQ KCL IV and PO KCL. -Will also give 2g of Mag sulfate IV. -Repeat BMP in the AM. Mild elevated troponin -Likely due to CANDICE. No further work up. Agitation - will start Seroquel. DNR. Heparin SQ. Discharge : Possible discharge on 03/10/2018.
[2018-03-09] MEDS ORDERED: Potassium Chlor 20 mEq Premix 20 MEQ/100 ML PIGGYBACK IV.SIG SCH (18:00)
[2018-03-09] MEDS: traZODone 50 MG Tablet PO SCH (23:08)
[2018-03-10] MEDS: Temazepam 15 MG Capsule PO SCH (03:10)
[2018-03-10] MEDS: Heparin - SQ 10,000 UNITS/ML Vial SQ SCH (06:28)
[2018-03-10 07:42] VITALS: RESP 18
[2018-03-10] MEDS: QUEtiapine 25 MG Tablet PO SCH (09:14)
[2018-03-10] MEDS: Metoprolol Tartrate 50 MG Tablet PO SCH (09:15)
[2018-03-10] MEDS: Senna/Docusate Sodium 8.6/50 MG Tablet PO SCH (09:16)
[2018-03-10] MEDS: Sodium Chloride 0.9% 2 ML Flush BID IV.FLUSH SCH (09:16)
[2018-03-10 09:30] LABS: Calcium 8.4 mg/dL (8.5-10.1); Carbon Dioxide 22.9 meq/L (21.0-32.0); Potassium 3.2 meq/L (3.5-5.1)
--- NOTE | 2018-03-10 11:17 | P.PNIM ---
Subjective Interval history: in no acute distress. awake and alert. afebrile and no fever. Physical Exam Vital signs: Vital Signs 03/09/18 11:57 03/09/18 16:35 03/09/18 20:00 Temperature 98.1 F 98.2 F Pulse Rate 62 66 66 Respiratory Rate 20 20 17 Blood Pressure 139/65 134/64 102/53 L Pulse Oximetry 96 96 99 03/10/18 00:00 03/10/18 03:11 03/10/18 07:41 Temperature 98.0 F Pulse Rate 70 71 75 Respiratory Rate 17 17 18 Blood Pressure 116/53 L 122/66 117/54 L Pulse Oximetry 100 98 96 Intake & Output 03/09/18 03/10/18 03/10/18 18:59 06:59 18:59 Intake Total 800 / 800 540 / 540 Balance 800 / 800 540 / 540 Weight 79.832 kg Intake: IV 800 / 800 500 / 500 NS Inj 1,000 ML @ 100 mls/hr IV 600 / 600 400 / 400 .CONT .Q10H [facility] Rx#:[id number] Magnesium Sulfate Inj 2 GM In 100 / 100 NS Inj 96 ML @ 50 mls/hr IV.SIG ONCE ONE Rx#:[id number] KCl 20 mEq Premix Inj 20 meq In 100 / 100 100 / 100 100 ml @ 50 mls/hr IV.SIG Q2H [facility] Rx#:[id number] Oral 40 / 40 Other: # Voids 2 2 Date of Last Bowel Movement 03/10/18 # Bowel Movements 2 - Constitutional no acute distress - Routine Respiratory Exam Present: CTA bilaterally - Routine Cardiovascular Exam Present: RRR - Routine Abdominal Exam Present: soft - Routine Extremities Exam Comments: no pedal edema. - Routine Neurological Exam Present: alert - Urinary Catheter Management Straight Cath placed during this visit: yes, but has since been removed by the nurse Reason for continuing: Not indwelling catheter Insertion date: 03/14/18 Insertion time: 18:20 Removal date: 03/07/18 Removal time: 18:21 Results - Labs CBC & Chem 7: 03/08/18 06:50 03/10/18 08:43 Laboratory Results - last 24 hr 03/09/18 03/10/18 08:27 08:43 Sodium 141 Potassium 3.2 L Chloride 107 Carbon Dioxide 22.9 Anion Gap 11 BUN 37 H Creatinine 1.29 H Estimated GFR 39 L Random Glucose 86 Calcium 8.4 L Magnesium 1.8 Microbiology 03/07/18 19:30 Blood - Peripheral Aerobic Blood Culture - Preliminary No growth in 3 days 03/07/18 19:30 Blood - Peripheral Anaerobic Blood Culture - Preliminary No growth in 3 days 03/07/18 19:25 Blood - Peripheral Aerobic Blood Culture - Preliminary No growth in 3 days 03/07/18 19:25 Blood - Peripheral Anaerobic Blood Culture - Preliminary No growth in 3 days 03/07/18 18:05 Catheterized Urine Urine Culture - Final No growth in 48 hours Assessment and Plan - Plan Ms. Marvin is a pleasant 87-year-old female with a history of blindness, COPD, hypertension who presented to the emergency department from her retirement due to increased confusion, altered mental status and lab abnormalities including neutropenia. Patient was found to have hyponatremia as well as acute kidney injury. Acute metabolic encephalopathy- seems to be improving. -Possibly due to acute kidney injury, dehydration. suspected urinary tract infection -Urine Cx negative. Discontinued abx. Acute kidney injury Hyponatremia- resolved. Hypokalemia- will replace. Hypomagnesemia-resolved. -Continue Fludrocortisone 0.1mg Qday. Mild elevated troponin -Likely due to CANDICE. No further work up. DNR. Heparin SQ. Discharge Planning: dc to SNF today - after potassium replacement. see med list. d/w the patient.
--- NOTE | 2018-03-10 11:36 | P.DS ---
Date of admission: 03/07/18 20:10 Primary care physician: Marcelino Mosquera MD Brief History from admission: 87-year-old female with a past medical history significant for blindness, chronic kidney disease, COPD and hypertension presents to the emergency department for the evaluation of altered mental status abnormal outpatient laboratory values. The patient was in her group home facility when outpatient lab work was done that showed hyponatremia and a mild leukocytosis. Per detention reports, the patient is also been acting more confused over the past 2 days. During her interview, the patient states that she feels "fine ". She does not know why she is in the hospital. She is oriented to location, self and year. She denies any chest pain or shortness of breath. No abdominal pain. No dysuria. No nausea/vomiting/diarrhea. No fever/chills. No lateralizing signs/symptoms. Of note, the patient's son was contacted who stated that the patient has been acting erratically since losing her oldest daughter approximately 1 month ago. He states that she has had poor oral intake and poor sleep since that time. DS: Diagnosis - Discharge Diagnosis (1) Altered mental status Status: Acute DS: Medications - Discharge Medications Prescriptions: furosemide [Lasix] 20 mg PO DAILY 30 Days tab quetiapine 25 mg PO BID@0900,1200 #4 tab DS: Summary Hospital Course: Ms. Marvin is a pleasant 87-year-old female with a history of blindness, COPD, hypertension who presented to the emergency department from her detention due to increased confusion, altered mental status and lab abnormalities including neutropenia. Patient was found to have hyponatremia as well as acute kidney injury. Acute metabolic encephalopathy -Possibly due to acute kidney injury, dehydration. -We will continue to monitor with supportive care. suspected urinary tract infection -Urine Cx negative. Discontinued abx. Acute kidney injury Hyponatremia Hypokalemia Hypomagnesemia -Creatinine 2.24, sodium 131, potassium 2.9 on admission. -Continue Fludrocortisone 0.1mg Qday. -Creatinine improved to 1.68. Potassium improved to 3.7 --> 2.8. -Will replace K+ with 40meQ KCL IV and PO KCL. -Will also give 2g of Mag sulfate IV. -Repeat BMP in the AM. Mild elevated troponin -Likely due to CANDICE. No further work up. Agitation - will start Seroquel. DNR. Heparin SQ. - Time Spent with Patient Total time spent providing and/or coordinating discharge services: Less than 30 minutes - Quality: VTE Deep Vein Thrombosis/Pulmonary Embolism Present on Admission: No Exam Vital signs: Vital Signs 03/09/18 11:57 03/09/18 16:35 03/09/18 20:00 Temperature 98.1 F 98.2 F Pulse Rate 62 66 66 Respiratory Rate 20 20 17 Blood Pressure 139/65 134/64 102/53 L Pulse Oximetry 96 96 99 03/10/18 00:00 03/10/18 03:11 03/10/18 07:41 Temperature 98.0 F Pulse Rate 70 71 75 Respiratory Rate 17 17 18 Blood Pressure 116/53 L 122/66 117/54 L Pulse Oximetry 100 98 96 Intake & Output 03/09/18 03/10/18 03/10/18 18:59 06:59 18:59 Intake Total 800 / 800 540 / 540 Balance 800 / 800 540 / 540 Weight 79.832 kg Intake: IV 800 / 800 500 / 500 NS Inj 1,000 ML @ 100 mls/hr IV 600 / 600 400 / 400 .CONT .Q10H [facility] Rx#:[id number] Magnesium Sulfate Inj 2 GM In 100 / 100 NS Inj 96 ML @ 50 mls/hr IV.SIG ONCE ONE Rx#:[id number] KCl 20 mEq Premix Inj 20 meq In 100 / 100 100 / 100 100 ml @ 50 mls/hr IV.SIG Q2H [facility] Rx#:[id number] Oral 40 / 40 Other: # Voids 2 2 Date of Last Bowel Movement 03/10/18 # Bowel Movements 2 - Constitutional no acute distress - Routine Respiratory Exam Present: CTA bilaterally - Routine Cardiovascular Exam Present: RRR - Routine Abdominal Exam Present: soft - Routine Extremities Exam Comments: no pedal edema. - Routine Neurological Exam Present: alert Results Procedures completed during hospitalization: none Labs on day of discharge: Labs from last 24 hours 03/10/18 08:43 Sodium 141 Potassium 3.2 L Chloride 107 Carbon Dioxide 22.9 Anion Gap 11 BUN 37 H Creatinine 1.29 H Estimated GFR 39 L Random Glucose 86 Calcium 8.4 L Preliminary micro results at discharge 03/07/18 19:30 Aerobic Blood Culture - Preliminary Blood - Peripheral No growth in 3 days Anaerobic Blood Culture - Preliminary No growth in 3 days 03/07/18 19:25 Aerobic Blood Culture - Preliminary Blood - Peripheral No growth in 3 days Anaerobic Blood Culture - Preliminary No growth in 3 days - Impressions ITS Impressions Chest X-Ray 03/07/18 17:36 CONCLUSION: Mild left base atelectasis. Head CT 03/07/18 17:36 CONCLUSION: 1. No acute intracranial abnormality. 2. Chronic white matter changes. . Discharge Plan - Discharge Disposition Patient Disposition: Discharge to SNF - Discharge Condition Condition: Fair - Discharge Order Discharge Orders: Discharge Order (Routine); Ordered 03/10/18 Ordered By: Ruben Weaver - Physicians Team Primary Care Provider: Marcelino Mosquera Attending Provider: Ruben Weaver Other Providers: Caesar Goins
[2018-03-10 12:12] VITALS: BP 102/51; PULSE 63; TEMP 98.6; O2SAT 100
== END 2018-03-10 13:05 ==
LOC: NEDA 16:53 → NEPC 16:53 → NEPGCP 21:44
PROVIDERS: ADMIT Internal Medicine; ATTEND Internal Medicine

== ENCOUNTER 2018-03-14 17:38 | Observation (INO) ==
--- NOTE | 2018-03-14 18:03 | ED ---
HPI General Chief Complaint: Shortness of Breath/Dyspnea Stated Complaint: Resp Time Seen by Provider: 03/14/18 17:43 Source: patient Mode of arrival: EMS Limitations: no limitations History of Present Illness HPI narrative: Patient was [facility] in [facility] a [facility], increase disorder mentation and complaint of chest pain/sob Past medical history significant for chronic kidney disease emphysema blindness hypertension and mitral valve disease MD complaint: Reports chest pain STEMI Alert: No Onset (ago): hour(s) (1) Duration: constant Pain location: Reports substernal Severity: moderate Severity scale (1-10): 4 Quality: Reports tightness Pain radiation: Reports none Relieving factors: nothing Exacerbating factors: nothing Treatments prior to arrival chest pain: Reports none Related Data Home Medications Medication Instructions Recorded Confirmed albuterol sulfate [Ventolin HFA] 1 puff INHALATION Q2HR PRN 03/07/18 03/14/18 aspirin 81 mg PO DAILY 03/07/18 03/14/18 cholecalciferol (vitamin D3) 1,000 unit PO DAILY 03/07/18 03/14/18 [Vitamin D3] fludrocortisone 0.1 mg PO DAILY 03/07/18 03/14/18 ginkgo biloba 60 mg PO DAILY 03/07/18 03/14/18 ipratropium-albuterol 3 ml INHALATION Q3HR PRN 03/07/18 03/14/18 metoprolol tartrate 50 mg PO BID 03/07/18 03/14/18 multivitamin 1 tab PO DAILY 03/07/18 03/14/18 simethicone 160 mg PO Q6HR PRN 03/07/18 03/14/18 sodium chloride 1,000 mg PO TID 03/07/18 03/14/18 trazodone 75 mg PO HS 03/07/18 03/14/18 umeclidinium-vilanterol [Anoro 1 puff INHALATION DAILY 03/07/18 03/14/18 Ellipta] loperamide [Imodium A-D] 1 tab PO Q6H PRN 03/14/18 03/14/18 melatonin 2 tab PO HS PRN 03/14/18 03/14/18 temazepam [Restoril] 1 tab PO HS 03/14/18 03/14/18 Previous Rx's Medication Instructions Recorded acetaminophen [Tylenol] 650 mg PO Q4H PRN #10 tab 03/10/18 furosemide [Lasix] 20 mg PO DAILY 30 Days tab 03/10/18 potassium chloride 20 meq PO DAILY #0 tab 03/20/18 vancomycin 125 mg PO QID 14 Days #56 cap 03/20/18 Allergies Allergy/AdvReac Type Severity Reaction Status Date / Time morphine Allergy Unknown unknown Verified 03/14/18 17:55 Sulfa (Sulfonamide Allergy Unknown unknown Verified 03/14/18 17:55 Antibiotics) Review of Systems ROS: all other systems reviewed are negative [facility] History History Provided By: Patient Medical History Medical History Blind (Acute) COPD (chronic obstructive pulmonary disease) (Acute) Chronic kidney disease (CKD) (Acute) Emphysema of lung (Acute) HTN (hypertension) (Acute) Mitral valve insufficiency (Acute) Surgical history unknown (Acute) Family History Family History Other Family history unknown Social History Social History Substance History: No History of Abuse Second Hand Smoke Exposure: No Smoking Status: Former smoker How Often Do You Have a Drink Containing Alcohol: Never Recent Travel in [place] within the Last 8 Weeks: No Recent Out of Country Travel within the Last 8 Weeks: No Immunization History Tetanus Immunization: Unsure Exam Narrative Exam Narrative: GENERAL: Elderly female, hyperventilating, hard of hearing patient is also blind. SKIN: Warm and dry. HEAD: Atraumatic. Normocephalic. EYES: Pupils equal and round. No scleral icterus. No injection or drainage. ENT: No nasal bleeding or discharge. Mucous membranes pink and moist. NECK: Trachea midline. No JVD. CARDIOVASCULAR: Regular rate and rhythm. no rubs or gallops RESPIRATORY: No accessory muscle use. Clear to auscultation. Breath sounds equal bilaterally. GASTROINTESTINAL: Abdomen soft, non-tender, nondistended. No rebound or guarding MUSCULOSKELETAL: Extremities without clubbing, cyanosis, or edema. No obvious deformities. NEUROLOGICAL: Awake and alert. No obvious cranial nerve deficits. Motor grossly within normal limits. Five out of 5 muscle strength in the arms and legs. Normal speech. PSYCHIATRIC: Anxious appearing Course Initial Documented Vital Signs Temperature 97.8 F 03/14/18 17:52 Pulse Rate 95 H 03/14/18 17:52 Respiratory Rate 31 H 03/14/18 17:52 Blood Pressure 175/86 H 03/14/18 17:52 Pulse Oximetry 97 03/14/18 17:52 Last Documented Vital Signs Temperature 97.9 F 03/20/18 16:00 Pulse Rate 69 03/20/18 16:00 Respiratory Rate 17 03/20/18 16:00 Blood Pressure 126/60 03/20/18 16:00 Pulse Oximetry 96 03/20/18 16:00 Medical Decision Making MDM Narrative Medical decision making narrative: Similar level of mild reactive leukocytosis is noted at 14,000 on March 14 as the patient did on March 07. More importantly the neutrophilia was not significant Chronic renal insufficiency worsening but still consistent with her baseline, the patient's troponin is slightly elevated at 0.13 higher than the 0.08 the patient had an March 08 Beta natruretic peptide was slightly elevated at 855 also. VQ scan was low risk Head CT compared to March [address] no acute changes cxr mild pulm edema findings today Medical Screen Exam Complete: Yes Emergency Medical Condition: Yes Medical Records Medical records reviewed: Yes I reviewed the patient's medical records. Patient returns with the same level of altered mentation when she was admitted on March 07, 2018. Lab Data Result diagrams: 03/19/18 04:21 03/19/18 11:25 Lab Results 03/14/18 03/14/18 03/14/18 Range/Units 18:23 18:23 18:23 WBC 14.3 H (4.0-11.0) th/mm3 RBC 3.30 L (4.00-5.30) mil/mm3 Hgb 10.6 L (11.6-15.3) gm/dL Hct 31.1 L (35.0-46.0) % MCV 94.1 (80.0-100.0) fL MCH 32.0 (27.0-34.0) pg MCHC 34.0 (32.0-36.0) % RDW 13.9 (11.6-17.2) % Plt Count 428 (150-450) th/mm3 MPV 7.7 (7.0-11.0) fL Neut % (Auto) 72.0 H (16.0-70.0) % Lymph % (Auto) 19.1 (9.0-44.0) % Craig % (Auto) 6.4 (0.0-8.0) % Eos % (Auto) 1.5 (0.0-4.0) % Baso % (Auto) 1.0 (0.0-2.0) % Neut # (Auto) 10.3 H (1.8-7.7) th/mm3 Lymph # (Auto) 2.7 (1.0-4.8) th/mm3 Craig # (Auto) 0.9 (0.0-0.9) th/mm3 Eos # (Auto) 0.2 (0.0-0.4) th/mm3 Baso # (Auto) 0.1 (0.0-0.2) th/mm3 WBC Differential . Differential Comment Auto diff final Sodium 141 (136-145) meq/L Potassium 3.5 (3.5-5.1) meq/L Chloride 107 (98-107) meq/L Carbon Dioxide 20.8 L (21.0-32.0) meq/L Anion Gap 13 (5-15) meq/L BUN 33 H (7-18) mg/dL Creatinine 2.00 H (0.50-1.00) mg/dL Estimated GFR 24 L (>89) mL/min Random Glucose 116 H (74-106) mg/dL Calcium 9.2 (8.5-10.1) mg/dL Phosphorus (2.5-4.9) mg/dL Magnesium (1.5-2.5) mg/dL Total Bilirubin 0.3 (0.2-1.0) mg/dL AST 35 (15-37) U/L ALT 26 (10-53) U/L Alkaline Phosphatase 158 H (45-117) U/L Total Creatine Kinase 38 (26-192) U/L Troponin I 0.13 H (0.02-0.05) ng/mL B-Natriuretic Peptide 855 H (0-100) pg/mL Total Protein 7.0 (6.4-8.2) g/dL Albumin 3.0 L (3.4-5.0) g/dL Urine Color (Yellw/Straw) Urine Clarity (Clear) Urine pH (5.0-8.5) Ur Specific [place] (1.002-1.035) Urine Protein (Neg-Trace) mg/dL Urine Glucose (UA) (Negative) mg/dL Urine Ketones (Negative) mg/dL Urine Occult Blood (Negative) Urine Nitrate (Negative) Urine Bilirubin (Negative) Urine Urobilinogen (Less than 2) mg/dL Ur Leukocyte Esterase (Negative) Urine RBC (0-3) /hpf Urine WBC (0-5) /hpf Urine Bacteria (None) /hpf Hyaline Casts (0-3) /lpf Urine Mucus (Occasional) /lpf Micro UA Comment Ur Microscopic Review Urine Culture Comments Stool C.difficile Ag (Negative) Stool C.difficile Toxin (Negative) Stl C.difficile DNA Amp (Negative) St C. diff Tox Epid 027 (Negative) 03/15/18 03/15/18 03/16/18 Range/Units 01:40 07:35 08:51 WBC 16.9 H (4.0-11.0) th/mm3 RBC 3.11 L (4.00-5.30) mil/mm3 Hgb 9.9 L (11.6-15.3) gm/dL Hct 29.5 L (35.0-46.0) % MCV 95.0 (80.0-100.0) fL MCH 31.7 (27.0-34.0) pg MCHC 33.4 (32.0-36.0) % RDW 14.0 (11.6-17.2) % Plt Count 399 (150-450) th/mm3 MPV 8.2 (7.0-11.0) fL Neut % (Auto) 79.4 H (16.0-70.0) % Lymph % (Auto) 12.3 (9.0-44.0) % Craig % (Auto) 7.0 (0.0-8.0) % Eos % (Auto) 0.8 (0.0-4.0) % Baso % (Auto) 0.5 (0.0-2.0) % Neut # (Auto) 13.4 H (1.8-7.7) th/mm3 Lymph # (Auto) 2.1 (1.0-4.8) th/mm3 Craig # (Auto) 1.2 H (0.0-0.9) th/mm3 Eos # (Auto) 0.1 (0.0-0.4) th/mm3 Baso # (Auto) 0.1 (0.0-0.2) th/mm3 WBC Differential . Differential Comment Auto diff final Sodium (136-145) meq/L Potassium (3.5-5.1) meq/L Chloride (98-107) meq/L Carbon Dioxide (21.0-32.0) meq/L Anion Gap (5-15) meq/L BUN (7-18) mg/dL Creatinine (0.50-1.00) mg/dL Estimated GFR (>89) mL/min Random Glucose (74-106) mg/dL Calcium (8.5-10.1) mg/dL Phosphorus (2.5-4.9) mg/dL Magnesium (1.5-2.5) mg/dL Total Bilirubin (0.2-1.0) mg/dL AST (15-37) U/L ALT (10-53) U/L Alkaline Phosphatase (45-117) U/L Total Creatine Kinase 39 34 (26-192) U/L Troponin I 0.18 H 0.17 H (0.02-0.05) ng/mL B-Natriuretic Peptide (0-100) pg/mL Total Protein (6.4-8.2) g/dL Albumin (3.4-5.0) g/dL Urine Color (Yellw/Straw) Urine Clarity (Clear) Urine pH (5.0-8.5) Ur Specific [place] (1.002-1.035) Urine Protein (Neg-Trace) mg/dL Urine Glucose (UA) (Negative) mg/dL Urine Ketones (Negative) mg/dL Urine Occult Blood (Negative) Urine Nitrate (Negative) Urine Bilirubin (Negative) Urine Urobilinogen (Less than 2) mg/dL Ur Leukocyte Esterase (Negative) Urine RBC (0-3) /hpf Urine WBC (0-5) /hpf Urine Bacteria (None) /hpf Hyaline Casts (0-3) /lpf Urine Mucus (Occasional) /lpf Micro UA Comment Ur Microscopic Review Urine Culture Comments Stool C.difficile Ag (Negative) Stool C.difficile Toxin (Negative) Stl C.difficile DNA Amp (Negative) St C. diff Tox Epid 027 (Negative) 10/11/18 10/11/18 10/11/18 Range/Units 08:51 16:04 23:36 WBC (4.0-11.0) th/mm3 RBC (4.00-5.30) mil/mm3 Hgb (11.6-15.3) gm/dL Hct (35.0-46.0) % MCV (80.0-100.0) fL MCH (27.0-34.0) pg MCHC (32.0-36.0) % RDW (11.6-17.2) % Plt Count (150-450) th/mm3 MPV (7.0-11.0) fL Neut % (Auto) (16.0-70.0) % Lymph % (Auto) (9.0-44.0) % Craig % (Auto) (0.0-8.0) % Eos % (Auto) (0.0-4.0) % Baso % (Auto) (0.0-2.0) % Neut # (Auto) (1.8-7.7) th/mm3 Lymph # (Auto) (1.0-4.8) th/mm3 Craig # (Auto) (0.0-0.9) th/mm3 Eos # (Auto) (0.0-0.4) th/mm3 Baso # (Auto) (0.0-0.2) th/mm3 WBC Differential Differential Comment Sodium 148 H (136-145) meq/L Potassium 2.8 L* 3.2 L (3.5-5.1) meq/L Chloride 107 (98-107) meq/L Carbon Dioxide 24.5 (21.0-32.0) meq/L Anion Gap 17 H (5-15) meq/L BUN 33 H (7-18) mg/dL Creatinine 1.65 H (0.50-1.00) mg/dL Estimated GFR 29 L (>89) mL/min Random Glucose 93 (74-106) mg/dL Calcium 8.3 L D (8.5-10.1) mg/dL Phosphorus (2.5-4.9) mg/dL Magnesium (1.5-2.5) mg/dL Total Bilirubin (0.2-1.0) mg/dL AST (15-37) U/L ALT (10-53) U/L Alkaline Phosphatase (45-117) U/L Total Creatine Kinase (26-192) U/L Troponin I (0.02-0.05) ng/mL B-Natriuretic Peptide (0-100) pg/mL Total Protein (6.4-8.2) g/dL Albumin (3.4-5.0) g/dL Urine Color Yellow (Yellw/Straw) Urine Clarity Clear (Clear) Urine pH 5.0 (5.0-8.5) Ur Specific [place] 1.009 (1.002-1.035) Urine Protein Negative (Neg-Trace) mg/dL Urine Glucose (UA) Negative (Negative) mg/dL Urine Ketones Negative (Negative) mg/dL Urine Occult Blood Negative (Negative) Urine Nitrate Negative (Negative) Urine Bilirubin Negative (Negative) Urine Urobilinogen Less than 2 (Less than 2) mg/dL Ur Leukocyte Esterase Negative (Negative) Urine RBC Less than 1 (0-3) /hpf Urine WBC 1 (0-5) /hpf Urine Bacteria Rare H (None) /hpf Hyaline Casts 9 (0-3) /lpf Urine Mucus Few H (Occasional) /lpf Micro UA Comment Culture not ind Ur Microscopic Review Not Reportable Urine Culture Comments Culture not ind Stool C.difficile Ag (Negative) Stool C.difficile Toxin (Negative) Stl C.difficile DNA Amp (Negative) St C. diff Tox Epid 027 (Negative) 03/17/18 03/17/18 03/17/18 Range/Units 05:23 05:23 16:15 WBC 28.0 H D (4.0-11.0) th/mm3 RBC 3.16 L (4.00-5.30) mil/mm3 Hgb 9.8 L (11.6-15.3) gm/dL Hct 30.1 L (35.0-46.0) % MCV 95.3 (80.0-100.0) fL MCH 31.2 (27.0-34.0) pg MCHC 32.7 (32.0-36.0) % RDW 14.0 (11.6-17.2) % Plt Count 416 (150-450) th/mm3 MPV 8.4 (7.0-11.0) fL Neut % (Auto) 89.4 H (16.0-70.0) % Lymph % (Auto) 4.8 L (9.0-44.0) % Craig % (Auto) 5.7 (0.0-8.0) % Eos % (Auto) 0.0 (0.0-4.0) % Baso % (Auto) 0.1 (0.0-2.0) % Neut # (Auto) 25.0 H (1.8-7.7) th/mm3 Lymph # (Auto) 1.4 (1.0-4.8) th/mm3 Craig # (Auto) 1.6 H (0.0-0.9) th/mm3 Eos # (Auto) 0.0 (0.0-0.4) th/mm3 Baso # (Auto) 0.0 (0.0-0.2) th/mm3 WBC Differential . Differential Comment Auto diff final Sodium 145 (136-145) meq/L Potassium 3.6 (3.5-5.1) meq/L Chloride 111 H (98-107) meq/L Carbon Dioxide 23.8 (21.0-32.0) meq/L Anion Gap 10 (5-15) meq/L BUN 37 H (7-18) mg/dL Creatinine 1.82 H (0.50-1.00) mg/dL Estimated GFR 26 L (>89) mL/min Random Glucose 122 H (74-106) mg/dL Calcium 8.7 (8.5-10.1) mg/dL Phosphorus (2.5-4.9) mg/dL Magnesium (1.5-2.5) mg/dL Total Bilirubin (0.2-1.0) mg/dL AST (15-37) U/L ALT (10-53) U/L Alkaline Phosphatase (45-117) U/L Total Creatine Kinase (26-192) U/L Troponin I (0.02-0.05) ng/mL B-Natriuretic Peptide (0-100) pg/mL Total Protein (6.4-8.2) g/dL Albumin (3.4-5.0) g/dL Urine Color (Yellw/Straw) Urine Clarity (Clear) Urine pH (5.0-8.5) Ur Specific [place] (1.002-1.035) Urine Protein (Neg-Trace) mg/dL Urine Glucose (UA) (Negative) mg/dL Urine Ketones (Negative) mg/dL Urine Occult Blood (Negative) Urine Nitrate (Negative) Urine Bilirubin (Negative) Urine Urobilinogen (Less than 2) mg/dL Ur Leukocyte Esterase (Negative) Urine RBC (0-3) /hpf Urine WBC (0-5) /hpf Urine Bacteria (None) /hpf Hyaline Casts (0-3) /lpf Urine Mucus (Occasional) /lpf Micro UA Comment Ur Microscopic Review Urine Culture Comments Stool C.difficile Ag Positive H (Negative) Stool C.difficile Toxin Positive H (Negative) Stl C.difficile DNA Amp Positive H (Negative) St C. diff Tox Epid 027 Negative (Negative) 03/18/18 03/18/18 03/19/18 Range/Units 05:07 05:07 04:21 WBC 24.1 H 14.9 H (4.0-11.0) th/mm3 RBC 3.31 L 2.72 L (4.00-5.30) mil/mm3 Hgb 10.3 L 8.7 L (11.6-15.3) gm/dL Hct 31.6 L 26.4 L (35.0-46.0) % MCV 95.5 97.0 (80.0-100.0) fL MCH 31.1 32.0 (27.0-34.0) pg MCHC 32.5 33.0 (32.0-36.0) % RDW 14.4 14.6 (11.6-17.2) % Plt Count 388 342 (150-450) th/mm3 MPV 8.7 8.9 (7.0-11.0) fL Neut % (Auto) 78.8 H (16.0-70.0) % Lymph % (Auto) 12.6 (9.0-44.0) % Craig % (Auto) 6.9 (0.0-8.0) % Eos % (Auto) 1.1 (0.0-4.0) % Baso % (Auto) 0.6 (0.0-2.0) % Neut # (Auto) 11.8 H (1.8-7.7) th/mm3 Lymph # (Auto) 1.9 (1.0-4.8) th/mm3 Craig # (Auto) 1.0 H (0.0-0.9) th/mm3 Eos # (Auto) 0.2 (0.0-0.4) th/mm3 Baso # (Auto) 0.1 (0.0-0.2) th/mm3 WBC Differential . Differential Comment Auto diff final Sodium 150 H (136-145) meq/L Potassium 3.9 (3.5-5.1) meq/L Chloride 115 H (98-107) meq/L Carbon Dioxide 22.7 (21.0-32.0) meq/L Anion Gap 12 (5-15) meq/L BUN 31 H (7-18) mg/dL Creatinine 1.55 H (0.50-1.00) mg/dL Estimated GFR 32 L (>89) mL/min Random Glucose 104 (74-106) mg/dL Calcium 8.1 L (8.5-10.1) mg/dL Phosphorus 3.2 (2.5-4.9) mg/dL Magnesium 1.7 (1.5-2.5) mg/dL Total Bilirubin (0.2-1.0) mg/dL AST (15-37) U/L ALT (10-53) U/L Alkaline Phosphatase (45-117) U/L Total Creatine Kinase (26-192) U/L Troponin I (0.02-0.05) ng/mL B-Natriuretic Peptide (0-100) pg/mL Total Protein (6.4-8.2) g/dL Albumin (3.4-5.0) g/dL Urine Color (Yellw/Straw) Urine Clarity (Clear) Urine pH (5.0-8.5) Ur Specific [place] (1.002-1.035) Urine Protein (Neg-Trace) mg/dL Urine Glucose (UA) (Negative) mg/dL Urine Ketones (Negative) mg/dL Urine Occult Blood (Negative) Urine Nitrate (Negative) Urine Bilirubin (Negative) Urine Urobilinogen (Less than 2) mg/dL Ur Leukocyte Esterase (Negative) Urine RBC (0-3) /hpf Urine WBC (0-5) /hpf Urine Bacteria (None) /hpf Hyaline Casts (0-3) /lpf Urine Mucus (Occasional) /lpf Micro UA Comment Ur Microscopic Review Urine Culture Comments Stool C.difficile Ag (Negative) Stool C.difficile Toxin (Negative) Stl C.difficile DNA Amp (Negative) St C. diff Tox Epid 027 (Negative) 03/19/18 03/19/18 03/19/18 Range/Units 04:21 04:21 11:25 WBC (4.0-11.0) th/mm3 RBC (4.00-5.30) mil/mm3 Hgb (11.6-15.3) gm/dL Hct (35.0-46.0) % MCV (80.0-100.0) fL MCH (27.0-34.0) pg MCHC (32.0-36.0) % RDW (11.6-17.2) % Plt Count (150-450) th/mm3 MPV (7.0-11.0) fL Neut % (Auto) (16.0-70.0) % Lymph % (Auto) (9.0-44.0) % Craig % (Auto) (0.0-8.0) % Eos % (Auto) (0.0-4.0) % Baso % (Auto) (0.0-2.0) % Neut # (Auto) (1.8-7.7) th/mm3 Lymph # (Auto) (1.0-4.8) th/mm3 Craig # (Auto) (0.0-0.9) th/mm3 Eos # (Auto) (0.0-0.4) th/mm3 Baso # (Auto) (0.0-0.2) th/mm3 WBC Differential Differential Comment Sodium 143 (136-145) meq/L Potassium 2.8 L* D 3.3 L (3.5-5.1) meq/L Chloride 110 H (98-107) meq/L Carbon Dioxide 21.1 (21.0-32.0) meq/L Anion Gap 12 (5-15) meq/L BUN 36 H (7-18) mg/dL Creatinine 1.63 H (0.50-1.00) mg/dL Estimated GFR 30 L (>89) mL/min Random Glucose 124 H (74-106) mg/dL Calcium 7.6 L (8.5-10.1) mg/dL Phosphorus (2.5-4.9) mg/dL Magnesium 1.4 L Cancelled (1.5-2.5) mg/dL Total Bilirubin (0.2-1.0) mg/dL AST (15-37) U/L ALT (10-53) U/L Alkaline Phosphatase (45-117) U/L Total Creatine Kinase (26-192) U/L Troponin I (0.02-0.05) ng/mL B-Natriuretic Peptide (0-100) pg/mL Total Protein (6.4-8.2) g/dL Albumin (3.4-5.0) g/dL Urine Color (Yellw/Straw) Urine Clarity (Clear) Urine pH (5.0-8.5) Ur Specific [place] (1.002-1.035) Urine Protein (Neg-Trace) mg/dL Urine Glucose (UA) (Negative) mg/dL Urine Ketones (Negative) mg/dL Urine Occult Blood (Negative) Urine Nitrate (Negative) Urine Bilirubin (Negative) Urine Urobilinogen (Less than 2) mg/dL Ur Leukocyte Esterase (Negative) Urine RBC (0-3) /hpf Urine WBC (0-5) /hpf Urine Bacteria (None) /hpf Hyaline Casts (0-3) /lpf Urine Mucus (Occasional) /lpf Micro UA Comment Ur Microscopic Review Urine Culture Comments Stool C.difficile Ag (Negative) Stool C.difficile Toxin (Negative) Stl C.difficile DNA Amp (Negative) St C. diff Tox Epid 027 (Negative) Imaging Data Radiologist's impression: Chest X-Ray 03/14/18 17:58 CONCLUSION: No acute cardiopulmonary process. Head CT 03/14/18 17:59 CONCLUSION: 1. No acute intracranial abnormality. 2. Atrophy. 3. Chronic stable change of the left globe. . Pulmonary Perfusion Imaging 03/14/18 19:21 CONCLUSION: Low probability for pulmonary embolus with 2 small matched defects. 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 Chest CT 03/17/18 13:31 CONCLUSION: 1. Mild prominence of interstitium likely related to underlying interstitial disease. 2. 6 mm focal nodule in the left lower lobe. This should be followed with a noncontrast CT examination 6 months. 3. L1 vertebral body fracture deformity with some retropulsion of the posterior superior L1 vertebral body. The age of this deformity is not known. 4. Left seventh rib fracture. Discharge Plan Discharge Disposition Patient Disposition: 03 Discharge to SNF Discharge Condition Condition: Fair Discharge Order Discharge Orders: Discharge Order (Routine); Ordered 03/20/18 Ordered By: Kane Pham Discharge Details Anticipated Discharge Date: 03/20/18 Discharge Comment: Discussed with ID on 03/20/2018 - ID clears for discharge. Vanc 125mg PO QID X 2 weeks. Diagnosis: Altered mental status, Elevated troponin I level Physicians Team ED Provider: Herman Grier Primary Care Provider: Marcelino Mosquera Attending Provider: Kane Pham Other Providers: Caesar Goins ; Socorro Delacruz Discharge Interventions Interventions: ED Discharge Assessment Last Done: 03/15/18 02:14 Status ED Status: Left Department Discharge Information Discharge Date/Time: 03/15/18 03:06
--- NOTE | 2018-03-14 18:29 | XR ---
EXAM DATE: 03/14/2018 5:58 PM EDT AGE/SEX: 87 years / Female INDICATIONS: Short of breath. CLINICAL DATA: This is the patient's sequela encounter. Patient reports that signs and symptoms have been present for 1 week and indicates a pain score of 0/10. MEDICAL/SURGICAL HISTORY: Non-responsive. Non-responsive. COMPARISON: [facility] [place], CHEST 1V SINGLE AP, 03/07/2018. . FINDINGS: A single AP view of the chest demonstrates the lungs to be symmetrically aerated without evidence of mass, infiltrate or effusion. The cardiomediastinal contours are unremarkable. There is chronic hype rtrophic change at the right humeral head. There is a high riding humeral head seen on the left side. . CONCLUSION: No acute cardiopulmonary process. Electronically signed by: Geraldo Jacobs MD 03/14/2018 6:28 PM EDT
[2018-03-14 18:38] LABS: Baso # (Auto) 0.1 th/mm3 (0.0-0.2); Eos # (Auto) 0.2 th/mm3 (0.0-0.4); Eos % (Auto) 1.5 % (0.0-4.0); Hematocrit 31.1 % (35.0-46.0); Hemoglobin 10.6 gm/dL (11.6-15.3); Lymph # (Auto) 2.7 th/mm3 (1.0-4.8); Lymph % (Auto) 19.1 % (9.0-44.0); Mean Corpuscular Volume 94.1 fL (80.0-100.0); Mean Platelet Volume 7.7 fL (7.0-11.0); Mono # (Auto) 0.9 th/mm3 (0.0-0.9); Mono % (Auto) 6.4 % (0.0-8.0); Neut # (Auto) 10.3 th/mm3 (1.8-7.7); Platelet Count 428 th/mm3 (150-450); Red Cell Distribution Width 13.9 % (11.6-17.2); White Blood Count 14.3 th/mm3 (4.0-11.0)
[2018-03-14 18:52] LABS: Anion Gap 13 meq/L (5-15); Aspartate Aminotransferase 35 U/L (15-37); Blood Urea Nitrogen 33 mg/dL (7-18); Calcium 9.2 mg/dL (8.5-10.1); Carbon Dioxide 20.8 meq/L (21.0-32.0); Chloride 107 meq/L (98-107); Glomerular Filtration Rate 24 mL/min (>89); Glucose,Random 116 mg/dL (74-106); Potassium 3.5 meq/L (3.5-5.1); Sodium 141 meq/L (136-145)
[2018-03-14 18:58] LABS: Alanine Aminotransferase 26 U/L (10-53); Alkaline Phosphatase 158 U/L (45-117); Troponin I 0.13 ng/mL (0.02-0.05)
[2018-03-14 19:49] LABS: Creatine Kinase 38 U/L (26-192)
--- NOTE | 2018-03-14 20:33 | CT ---
EXAM DATE: 03/14/2018 7:27 PM EDT AGE/SEX: 87 years / Female INDICATIONS: Altered mental status CLINICAL DATA: This is the patient's initial encounter. Patient reports that signs and symptoms have been present for 1 day and indicates a pain score of 0/10. MEDICAL/SURGICAL HISTORY: Chronic renal insufficiency. Chronic obstructive pulmonary disease. Hyp ertension. None. RADIATION DOSE: 56.35 CTDI (mGy) COMPARISON: [facility] [place], CT HEAD W/O CONTRAST, 03/07/2018. . TECHNIQUE: CT of the head without contrast. Using automated exposure control and adjustment of the mA and/or kV according to patient size, radiation dose was kept as low as reasonably achievable to ob tain optimal diagnostic quality images. DICOM format image data is available electronically for revi ew and comparison. FINDINGS: Cerebrum: The ventricles and cortical sulci are widened.. No evidence of midline shift, mass lesion , hemorrhage or acute infarction. No extraaxial fluid collections are seen. Posterior Fossa: The cerebellum and brainstem are intact. The 4th ventricle is midline. The cerebe llopontine angle is unremarkable. Extracranial: There is chronic deformity identified at the left globe with increased density seen po steriorly within the left globe. This appearance is unchanged. Skull: The calvaria is intact. No evidence of skull fracture. CONCLUSION: 1. No acute intracranial abnormality. 2. Atrophy. 3. Chronic stable change of the left globe. . Electronically signed by: Geraldo Jacobs MD 03/14/2018 8:31 PM EDT
--- NOTE | 2018-03-14 21:37 | NM ---
EXAM DATE: 03/14/2018 8:45 PM EDT AGE/SEX: 87 years / Female INDICATIONS: Dyspnea. CLINICAL DATA: This is the patient's initial encounter. Patient reports that signs and symptoms have been present for 1 day and indicates a pain score of 0/10. MEDICAL/SURGICAL HISTORY: Chronic obstructive pulmonary disease. Hypertension. Chronic renal insufficiency. None. COMPARISON: [facility], CHEST 1V SINGLE AP, 03/14/2018. . DOSE: 1.1 mCi Tc99m DTPA aerosol 8.7 mCi Tc99m MAA IV TECHNIQUE: Following five minutes of tidal breathing of DTPA aerosol, planar images of the lungs wer e performed in eight projections. The patient was then injected with MAA, and eight-view perfusion s can was performed. FINDINGS: There are small matched defects at the lateral mid left kidney, and at the posterior mid r ight lung. No mismatch defects are seen. The chest x-ray is free of focal consolidation. CONCLUSION: Low probability for pulmonary embolus with 2 small matched defects. Electronically signed by: Geraldo Jacobs MD 03/14/2018 9:36 PM EDT
[2018-03-14] MEDS ORDERED: hydrALAZINE HCl Inj 20 MG/ML Vial IV.PUSH ONE (23:45)
[2018-03-15] MEDS ORDERED: Bisacodyl 10 MG Supp RECTAL PRN (01:11)
[2018-03-15] MEDS ORDERED: Acetaminophen 325 MG Tablet PO PRN ×2 (01:11→16:09)
[2018-03-15] MEDS ORDERED: Sod Chloride 0.9% Inj 1,000 ML IV.CONT SCH (01:15)
[2018-03-15] MEDS: Heparin - SQ 10,000 UNITS/ML Vial SQ SCH ×2 (01:30→12:21)
--- NOTE | 2018-03-15 01:30 | P.HP ---
History of Present Illness Service: [facility] Primary Care Physician: Marcelino Mosquera MD History of Present Illness: 87-year-old female with a past medical history significant for blindness, chronic kidney disease, COPD and hypertension presents to the emergency department for the evaluation of altered mental status with accompanying chest pain/shortness of breath. The patient was recently hospitalized for multiple metabolic disturbances with altered mental status. At the time of our interview , the patient is only able to tell me that she needs help. She cannot tell me why she is here. She is alert and oriented to self only. She is hypertensive to 234/107 and severely agitated. Her troponin is elevated to 0.13. Review of Systems unobtainable due to mental status PMFSH - History History Provided By: Patient - Medical History Medical History: Medical History (Last Reviewed 03/15/18 @ 01:20 by Yaneli Castillo MD) Blind COPD (chronic obstructive pulmonary disease) Chronic kidney disease (CKD) Emphysema of lung HTN (hypertension) Mitral valve insufficiency Surgical history unknown - Family History Family History: Family History (Last Reviewed 03/14/18 @ 18:01 by Herman Grier) Other Family history unknown - Tobacco History Smoking Status: Former smoker - Alcohol History How Often Do You Have a Drink Containing Alcohol: Never - Substance Use History Substance History: No History of Abuse - Travel History Recent Travel in the [place] Within the Last 8 Weeks: No Recent Travel Out of the Country Within the Last 8 Weeks: No - Immunization History Tetanus Immunization: Unsure Medications and Allergies Active Medications: Active Medications Acetaminophen (Tylenol) 650 mg PO Q4H PRN PRN Reason: Temp > 100.4 Albuterol (Duoneb Neb (Prn)) ampul NEB Q3HR PRN PRN Reason: Cough/Congestion Sodium Chloride (Ns Flush) 2 ml IV.FLUSH UNSCH PRN PRN Reason: FLUSH AFTER USING IV ACCESS Allergies Allergy/AdvReac Type Severity Reaction Status Date / Time morphine Allergy Unknown unknown Verified 03/14/18 17:55 Sulfa (Sulfonamide Allergy Unknown unknown Verified 03/14/18 17:55 Antibiotics) Home Medications Medication Instructions Recorded Confirmed Type albuterol sulfate [Ventolin HFA] 1 puff INHALATION Q2HR PRN 03/07/18 03/14/18 History aspirin 81 mg PO DAILY 03/07/18 03/14/18 History cholecalciferol (vitamin D3) 1,000 unit PO DAILY 03/07/18 03/14/18 History [Vitamin D3] fludrocortisone 0.1 mg PO DAILY 03/07/18 03/14/18 History ginkgo biloba 60 mg PO DAILY 03/07/18 03/14/18 History ipratropium-albuterol 3 ml INHALATION Q3HR PRN 03/07/18 03/14/18 History metoprolol tartrate 50 mg PO BID 03/07/18 03/14/18 History multivitamin 1 tab PO DAILY 03/07/18 03/14/18 History potassium chloride 20 meq PO BID 03/07/18 03/14/18 History simethicone 160 mg PO Q6HR PRN 03/07/18 03/14/18 History sodium chloride 1,000 mg PO TID 03/07/18 03/14/18 History trazodone 75 mg PO HS 03/07/18 03/14/18 History umeclidinium-vilanterol [Anoro 1 puff INHALATION DAILY 03/07/18 03/14/18 History Ellipta] ibuprofen 600 mg PO TID 03/14/18 03/14/18 History loperamide [Imodium A-D] 1 tab PO Q6H PRN 03/14/18 03/14/18 History melatonin 2 tab PO HS PRN 03/14/18 03/14/18 History temazepam [Restoril] 1 tab PO HS 03/14/18 03/14/18 History Exam Vital signs: Vital Signs 03/14/18 17:52 03/14/18 22:46 03/14/18 23:38 Temperature 97.8 F Pulse Rate 95 H 102 H 100 H Respiratory Rate 31 H 19 25 H Blood Pressure 175/86 H 218/100 H 234/107 H Pulse Oximetry 97 100 100 03/15/18 00:07 03/15/18 00:24 03/15/18 00:51 Temperature Pulse Rate 93 H 92 H 90 Respiratory Rate 18 17 18 Blood Pressure 183/74 H 112/59 L 117/56 L Pulse Oximetry 96 100 100 Intake & Output 03/14/18 03/14/18 03/15/18 06:59 18:59 06:59 Weight 72.575 kg Narrative: Gen.: Patient is extremely agitated screaming help over and over Head: Normocephalic. Atraumatic. EENT: Pupils equal round and reactive to light. Nose without drainage. Airway intact. Throat without injection. Cardiovascular: Regular rate and rhythm. No murmurs, rubs or gallops. Respiratory: Lungs clear to auscultation bilaterally. No wheezes or rhonchi. Abdomen: Soft, nontender, nondistended. No peritoneal signs. Musculoskeletal: No gross deformities. No edema. Skin: No obvious rashes or erythema. Neuro: Sensory and motor grossly intact. Cranial nerves II through XII grossly intact. Results - Labs CBC & Chem 7: 03/14/18 18:23 03/14/18 18:23 Labs: Laboratory Results - last 24 hr 03/14/18 03/14/18 03/14/18 18:23 18:23 18:23 WBC 14.3 H RBC 3.30 L Hgb 10.6 L Hct 31.1 L MCV 94.1 MCH 32.0 MCHC 34.0 RDW 13.9 Plt Count 428 MPV 7.7 Neut % (Auto) 72.0 H Lymph % (Auto) 19.1 [place] % (Auto) 6.4 Eos % (Auto) 1.5 Baso % (Auto) 1.0 Neut # (Auto) 10.3 H Lymph # (Auto) 2.7 [place] # (Auto) 0.9 Eos # (Auto) 0.2 Baso # (Auto) 0.1 WBC Differential . Differential Comment Auto diff final Sodium 141 Potassium 3.5 Chloride 107 Carbon Dioxide 20.8 L Anion Gap 13 BUN 33 H Creatinine 2.00 H Estimated GFR 24 L Random Glucose 116 H Calcium 9.2 Total Bilirubin 0.3 AST 35 ALT 26 Alkaline Phosphatase 158 H Total Creatine Kinase 38 Troponin I 0.13 H B-Natriuretic Peptide 855 H Total Protein 7.0 Albumin 3.0 L - Imaging Impressions Chest X-Ray 03/14/18 17:58 CONCLUSION: No acute cardiopulmonary process. Head CT 03/14/18 17:59 CONCLUSION: 1. No acute intracranial abnormality. 2. Atrophy. 3. Chronic stable change of the left globe. . Pulmonary Perfusion Imaging 03/14/18 19:21 CONCLUSION: Low probability for pulmonary embolus with 2 small matched defects. Caprini VTE Risk Assessment Caprini VTE Risk Assessment: Moderate/High Risk (score >= 2) Caprini Risk Assessment Model: Point Value = 1 Point Value = 2 Point Value = 3 Point Value = 5 Age 41-60 Minor surgery BMI > 25 kg/m2 Swollen legs Varicose veins or History of unexplained or recurrent spontaneous Oral contraceptives or hormone replacement Sepsis (< 1 month) Serious lung disease, including pneumonia (< 1 month) Abnormal pulmonary function Acute myocardial infarction Congestive heart failure (< 1 month) History of inflammatory bowel disease Medical patient at bed rest Age 61-74 Arthroscopic surgery Major open surgery (> 45 min) Laparoscopic surgery (> 45 min) Malignancy Confined to bed (> 72 hours) Immobilizing plaster cast Central venous access Age >= 75 History of VTE Family history of VTE Factor V Leiden Prothrombin [id number] Lupus anticoagulant Anticardiolipin antibodies Elevated serum homocysteine Heparin-induced thrombocytopenia Other congenital or acquired thrombophilia Stroke (< 1 month) Elective arthroplasty Hip, pelvis, or leg fracture Acute spinal cord injury (< 1 month) Prophylaxis Regimen: Total Risk Factor Score Risk Level Prophylaxis Regimen 0-1 Low Early ambulation 2 Moderate Order ONE of the following: *Sequential Compression Device (SCD) *Heparin 5000 units SQ BID 3-4 Higher Order ONE of the following medications: *Heparin 5000 units SQ TID *Enoxaparin/Lovenox 40 mg SQ daily (WT < 150 kg, CrCl > 30 mL/min) *Enoxaparin/Lovenox 30 mg SQ daily (WT < 150 kg, CrCl > 10-29 mL/min) *Enoxaparin/Lovenox 30 mg SQ BID (WT < 150 kg, CrCl > 30 mL/min) AND/OR *Sequential Compression Device (SCD) 5 or more Highest Order ONE of the following medications: *Heparin 5000 units SQ TID (Preferred with Epidurals) *Enoxaparin/Lovenox 40 mg SQ daily (WT < 150 kg, CrCl > 30 mL/min) *Enoxaparin/Lovenox 30 mg SQ daily (WT < 150 kg, CrCl > 10-29 mL/min) *Enoxaparin/Lovenox 30 mg SQ BID (WT < 150 kg, CrCl > 30 mL/min) AND *Sequential Compression Device (SCD) Assessment and Plan - Plan Assessment/plan: 1. Elevated troponin Likely secondary to chronic kidney disease EKG without signs of ischemia, personally reviewed ACS rule out pending; serial troponins/EKGs 2. Hypertensive urgency Resolved Continue home antihypertensives Clonidine as needed 3. COPD Duo nebs as needed 4. CHF BNP 855 Continue home Lasix FEN N.p.o. Electrolytes: Monitor and replete as needed Heparin
[2018-03-15 02:08] LABS: Troponin I 0.18 ng/mL (0.02-0.05)
[2018-03-15 08:43] LABS: Troponin I 0.17 ng/mL (0.02-0.05)
--- NOTE | 2018-03-15 08:52 | ECG ---
Date Performed: 03/15/2018 Time Performed: 07:40:10 PTAGE: 87 years EKG: Sinus rhythm WITH OCCASIONAL VENTRICULAR PREMATURE COMPLEXES LEFT VENTRICULAR HYPERTROPHY AND ST-T CHANGE ABNORMA L ECG PREVIOUS TRACING : 03/15/2018 01.43 DOCTOR: Davy Leon Interpretating Date/Time 03/15/2018 08:52:14
[2018-03-15] MEDS ORDERED: Furosemide 20 MG Tablet PO SCH (09:00)
[2018-03-15] MEDS: Metoprolol Tartrate 50 MG Tablet PO SCH ×2 (09:03→21:54)
[2018-03-15] MEDS: Senna/Docusate Sodium 8.6/50 MG Tablet PO SCH ×2 (09:04→21:55)
--- NOTE | 2018-03-15 09:12 | ECG ---
Date Performed: 03/15/2018 Time Performed: 01:43:25 PTAGE: 87 years EKG: Sinus rhythm LEFT VENTRICULAR HYPERTROPHY AND ST-T CHANGE ABNORMAL ECG PREVIOUS TRACING : 03/08/2018 05.41 DOCTOR: Davy Leon Interpretating Date/Time 03/15/2018 09:10:45
--- NOTE | 2018-03-15 12:20 | P.PN ---
Subjective Interval history: This is a pleasant 87 y/o Female with Blindness, CKD, COPD, Hypertension, presents to the emergency department for the evaluation of altered mental status with accompanying chest pain/shortness of breath. The patient was recently hospitalized for multiple metabolic disturbances with altered mental status. At the time of our interview, the patient is only able to tell me that she needs help. She cannot tell me why she is here. She is alert and oriented to self only. She is hypertensive to 234/107 and severely agitated. Her troponin is elevated initially to 0.13 today 0.18 and then 0.17 for equivocal troponin level, discussed with nurse, with Utilization management, she meets observation criteria and I agree, asked for manager specialty for discharge to SNF and also for PT evaluation. Physical Exam Vital signs: Vital Signs 03/14/18 17:52 03/14/18 22:46 03/14/18 23:38 Temperature 97.8 F Pulse Rate 95 H 102 H 100 H Respiratory Rate 31 H 19 25 H Blood Pressure 175/86 H 218/100 H 234/107 H Pulse Oximetry 97 100 100 03/15/18 00:07 03/15/18 00:24 03/15/18 00:51 Temperature Pulse Rate 93 H 92 H 90 Respiratory Rate 18 17 18 Blood Pressure 183/74 H 112/59 L 117/56 L Pulse Oximetry 96 100 100 03/15/18 01:31 03/15/18 02:06 03/15/18 02:08 Temperature 97.9 F Pulse Rate 85 90 Respiratory Rate 17 18 Blood Pressure 137/62 189/78 H 95/50 L Pulse Oximetry 100 93 L 03/15/18 02:35 03/15/18 04:15 03/15/18 04:17 Temperature 97.6 F Pulse Rate 83 81 Respiratory Rate 16 Blood Pressure 120/56 L 81/45 L Pulse Oximetry 95 03/15/18 08:00 Temperature 97.3 F L Pulse Rate 93 H Respiratory Rate 18 Blood Pressure 175/80 H Pulse Oximetry 95 Intake & Output 03/14/18 03/15/18 03/15/18 18:59 06:59 18:59 Intake Total 0 / 0 Balance 0 / 0 Weight 72.575 kg 73 kg Intake: IV 0 / 0 NS Inj 1,000 ML @ 70 mls/hr IV. 0 / 0 CONT .[id number] [facility] Rx#:[id number] Oral 0 / 0 Other: # Voids 0 # Incontinent Voids 1 Date of Last Bowel Movement 03/15/18 03/15/18 # Incontinent Bowel Movements 1 Weight On Admission 72.57 kg Narrative: Gen.: stable in her bedroom. Head: Normocephalic. Atraumatic. EENT: Pupils equal round and reactive to light. Nose without drainage. Airway intact. Throat without injection. Cardiovascular: Regular rate and rhythm. No murmurs, rubs or gallops. Respiratory: Lungs clear to auscultation bilaterally. No wheezes or rhonchi. Abdomen: Soft, nontender, nondistended. No peritoneal signs. Musculoskeletal: No gross deformities. No edema. Skin: No obvious rashes or erythema. Neuro: Sensory and motor grossly intact. Cranial nerves II through XII grossly intact. Results - Labs CBC & Chem 7: 03/14/18 18:23 03/14/18 18:23 Laboratory Results - last 24 hr 03/14/18 03/14/18 03/14/18 18:23 18:23 18:23 WBC 14.3 H RBC 3.30 L Hgb 10.6 L Hct 31.1 L MCV 94.1 MCH 32.0 MCHC 34.0 RDW 13.9 Plt Count 428 MPV 7.7 Neut % (Auto) 72.0 H Lymph % (Auto) 19.1 [place] % (Auto) 6.4 Eos % (Auto) 1.5 Baso % (Auto) 1.0 Neut # (Auto) 10.3 H Lymph # (Auto) 2.7 [place] # (Auto) 0.9 Eos # (Auto) 0.2 Baso # (Auto) 0.1 WBC Differential . Differential Comment Auto diff final Sodium 141 Potassium 3.5 Chloride 107 Carbon Dioxide 20.8 L Anion Gap 13 BUN 33 H Creatinine 2.00 H Estimated GFR 24 L Random Glucose 116 H Calcium 9.2 Total Bilirubin 0.3 AST 35 ALT 26 Alkaline Phosphatase 158 H Total Creatine Kinase 38 Troponin I 0.13 H B-Natriuretic Peptide 855 H Total Protein 7.0 Albumin 3.0 L 03/15/18 03/15/18 01:40 07:35 WBC RBC Hgb Hct MCV MCH MCHC RDW Plt Count MPV Neut % (Auto) Lymph % (Auto) [place] % (Auto) Eos % (Auto) Baso % (Auto) Neut # (Auto) Lymph # (Auto) [place] # (Auto) Eos # (Auto) Baso # (Auto) WBC Differential Differential Comment Sodium Potassium Chloride Carbon Dioxide Anion Gap BUN Creatinine Estimated GFR Random Glucose Calcium Total Bilirubin AST ALT Alkaline Phosphatase Total Creatine Kinase 39 34 Troponin I 0.18 H 0.17 H B-Natriuretic Peptide Total Protein Albumin - Imaging Impressions Chest X-Ray 03/14/18 17:58 CONCLUSION: No acute cardiopulmonary process. Head CT 03/14/18 17:59 CONCLUSION: 1. No acute intracranial abnormality. 2. Atrophy. 3. Chronic stable change of the left globe. . Pulmonary Perfusion Imaging 03/14/18 19:21 CONCLUSION: Low probability for pulmonary embolus with 2 small matched defects. Assessment and Plan - Plan Mitral valve insufficiency Surgical history unknown 1. Elevated troponin equivocal troponin level initial was 0.13 then 0.18 and then 0.17 Likely secondary to chronic kidney disease EKG without signs of ischemia, personally reviewed ACS ruled out. 2. Hypertensive urgency Resolved Continue home antihypertensives Clonidine as needed 3. COPD/Emphysema Duo nebs as needed 4. CHF BNP 855 Continue home Lasix 5. CKD IV stable FEN N.p.o. Electrolytes: Monitor and replete as needed Heparin Code Status: Full code. Discussed Condition With: patient and nurse Discharge Planning: Expected by tomorrow.
[2018-03-15] MEDS: Sodium Chloride 1 GM Tablet PO SCH (17:46)
[2018-03-15] MEDS: Furosemide 20 MG Tablet PO SCH (17:46)
[2018-03-15] MEDS: traZODone 50 MG Tablet PO SCH (21:53)
[2018-03-16] MEDS: Heparin - SQ 10,000 UNITS/ML Vial SQ SCH ×2 (01:18→13:27)
[2018-03-16] MEDS: Sodium Chloride 1 GM Tablet PO SCH ×3 (09:08→18:09)
[2018-03-16] MEDS: Furosemide 20 MG Tablet PO SCH (09:08)
[2018-03-16] MEDS: Senna/Docusate Sodium 8.6/50 MG Tablet PO SCH ×2 (09:08→20:22)
[2018-03-16] MEDS: Metoprolol Tartrate 50 MG Tablet PO SCH ×2 (09:09→20:22)
[2018-03-16] MEDS: Umeclindinium 62.5 MCG/Vilanterol 25 MCG Inhaler INH SCH (09:09)
[2018-03-16 11:41] LABS: Baso # (Auto) 0.1 th/mm3 (0.0-0.2); Baso % (Auto) 0.5 % (0.0-2.0); Eos # (Auto) 0.1 th/mm3 (0.0-0.4); Eos % (Auto) 0.8 % (0.0-4.0); Hematocrit 29.5 % (35.0-46.0); Hemoglobin 9.9 gm/dL (11.6-15.3); Lymph # (Auto) 2.1 th/mm3 (1.0-4.8); Lymph % (Auto) 12.3 % (9.0-44.0); Mean Corpuscular HGB Conc 33.4 % (32.0-36.0); Mean Corpuscular Hemoglobin 31.7 pg (27.0-34.0); Mean Platelet Volume 8.2 fL (7.0-11.0); Mono # (Auto) 1.2 th/mm3 (0.0-0.9); Neut # (Auto) 13.4 th/mm3 (1.8-7.7); Neut % (Auto) 79.4 % (16.0-70.0); Platelet Count 399 th/mm3 (150-450); Red Blood Count 3.11 mil/mm3 (4.00-5.30); White Blood Count 16.9 th/mm3 (4.0-11.0)
[2018-03-16 11:45] LABS: Calcium 8.3 mg/dL (8.5-10.1); Carbon Dioxide 24.5 meq/L (21.0-32.0)
[2018-03-16 11:57] LABS: Potassium 2.8 meq/L (3.5-5.1)
--- NOTE | 2018-03-16 11:57 | P.PN ---
Subjective Interval history: This is a pleasant 87 y/o Female with Blindness, CKD, COPD, Hypertension, presents to the emergency department for the evaluation of altered mental status with accompanying chest pain/shortness of breath. The patient was recently hospitalized for multiple metabolic disturbances with altered mental status. At the time of our interview, the patient is only able to tell me that she needs help. She cannot tell me why she is here. She is alert and oriented to self only. She is hypertensive to 234/107 and severely agitated. Her troponin is elevated initially to 0.13 today 0.18 and then 0.17 for equivocal troponin level, discussed with nurse, with Utilization management, she meets observation criteria and I agree, asked for salt manager for discharge to SNF and also for PT evaluation. 03/16:patient stable discussed with nurse with patient she is stable and ready to go to her [facility]. no nausea, vomit or diarrhea potassium replaced will continue diuretics and follow by PCP as outpatient. the patient developed Leukocytosis no clear source of infection started on Ceftriaxone and following. blood cultures asked, Urinalysis. Physical Exam Vital signs: Vital Signs 03/15/18 12:00 03/15/18 14:38 03/15/18 16:00 Temperature 98.0 F 97.9 F Pulse Rate 71 75 Respiratory Rate 18 18 Blood Pressure 162/72 H 146/63 H Pulse Oximetry 99 99 99 03/15/18 20:00 03/15/18 22:02 03/16/18 00:00 Temperature 98.2 F 97.9 F Pulse Rate 83 98 H Respiratory Rate 20 16 Blood Pressure 162/78 H 126/72 Pulse Oximetry 96 99 93 L 03/16/18 04:00 03/16/18 07:46 03/16/18 09:08 Temperature 98.4 F 98.6 F Pulse Rate 96 H 84 86 Respiratory Rate 18 17 Blood Pressure 118/67 150/67 H Pulse Oximetry 94 L 95 03/16/18 11:53 Temperature 97.7 F Pulse Rate 86 Respiratory Rate 16 Blood Pressure 123/60 Pulse Oximetry 97 Intake & Output 03/15/18 03/16/18 03/16/18 18:59 06:59 18:59 Intake Total 480 / 480 Output Total 400 / 400 700 / 700 Balance 80 / 80 -700 / -700 Weight 70.1 kg Intake: Oral 480 / 480 Output: Urine 400 / 400 700 / 700 Other: # Voids 3 Date of Last Bowel Movement 03/15/18 03/15/18 03/16/18 # Bowel Movements 1 # Incontinent Bowel Movements 3 Narrative: Gen.: No distress. Head: Normocephalic. Atraumatic. EENT: Pupils equal round and reactive to light. Nose without drainage. Airway intact. Throat without injection. Blindness. Cardiovascular: Regular rate and rhythm. No murmurs, rubs or gallops. Respiratory: Lungs clear to auscultation bilaterally. No wheezes or rhonchi. Abdomen: Soft, nontender, nondistended. No peritoneal signs. Musculoskeletal: No gross deformities. No edema. Skin: No obvious rashes or erythema. Neuro: Sensory and motor grossly intact. Cranial nerves II through XII grossly intact. Results - Labs CBC & Chem 7: 03/17/18 05:23 03/17/18 05:23 Laboratory Results - last 24 hr 03/16/18 08:51 WBC 16.9 H RBC 3.11 L Hgb 9.9 L Hct 29.5 L MCV 95.0 MCH 31.7 MCHC 33.4 RDW 14.0 Plt Count 399 MPV 8.2 Neut % (Auto) 79.4 H Lymph % (Auto) 12.3 [place] % (Auto) 7.0 Eos % (Auto) 0.8 Baso % (Auto) 0.5 Neut # (Auto) 13.4 H Lymph # (Auto) 2.1 [place] # (Auto) 1.2 H Eos # (Auto) 0.1 Baso # (Auto) 0.1 WBC Differential . Differential Comment Auto diff final Assessment and Plan - Plan Mitral valve insufficiency Surgical history unknown 1. Elevated troponin equivocal troponin level initial was 0.13 then 0.18 and then 0.17 Likely secondary to chronic kidney disease EKG without signs of ischemia, personally reviewed ACS ruled out. 2. Hypertensive urgency Mild Hypotension today. Resolved Continue home antihypertensives Clonidine as needed 3. COPD/Emphysema Duo nebs as needed 4. CHF BNP 855 Continue home Lasix 5. CKD IV stable Creatinine today 1.65 6. Hypokalemia replaced and following, today 2.8 came up to 3.2 given 40 meq more or Potassium chloride and following. FEN N.p.o. Electrolytes: Monitor and replete as needed Heparin Code Status: Full code. Discussed Condition With: Patient and Nurse Discharge Planning: Expected by tomorrow.
[2018-03-16] MEDS: traZODone 50 MG Tablet PO SCH (20:22)
[2018-03-17 00:59] LABS: Bacteria,Urine Rare /hpf; Bilirubin,Urine Negative (Negative); Clarity,Urine Clear (Clear); Color,Urine Yellow (Yellw/Straw); Glucose,Urine (UA) Negative (Negative); Hyaline Casts,Urine 9 /lpf (0-3); Leukocyte Esterase,Urine Negative (Negative); Mucus,Urine Few /lpf (Occasional); Nitrite,Urine Negative (Negative); Specific Gravity,Urine 1.009 (1.002-1.035)
[2018-03-17] MEDS: Heparin - SQ 10,000 UNITS/ML Vial SQ SCH ×2 (01:28→16:00)
[2018-03-17] MEDS: Melatonin 5 MG Tablet PO PRN (01:28)
[2018-03-17 06:32] LABS: Baso % (Auto) 0.1 % (0.0-2.0); Hematocrit 30.1 % (35.0-46.0); Hemoglobin 9.8 gm/dL (11.6-15.3); Lymph # (Auto) 1.4 th/mm3 (1.0-4.8); Lymph % (Auto) 4.8 % (9.0-44.0); Mean Corpuscular HGB Conc 32.7 % (32.0-36.0); Mean Corpuscular Hemoglobin 31.2 pg (27.0-34.0); Mean Corpuscular Volume 95.3 fL (80.0-100.0); Mean Platelet Volume 8.4 fL (7.0-11.0); Mono # (Auto) 1.6 th/mm3 (0.0-0.9); Mono % (Auto) 5.7 % (0.0-8.0); Neut % (Auto) 89.4 % (16.0-70.0); Platelet Count 416 th/mm3 (150-450); Red Blood Count 3.16 mil/mm3 (4.00-5.30)
[2018-03-17 07:09] LABS: Calcium 8.7 mg/dL (8.5-10.1); Carbon Dioxide 23.8 meq/L (21.0-32.0); Potassium 3.6 meq/L (3.5-5.1)
[2018-03-17] MEDS: Metoprolol Tartrate 50 MG Tablet PO SCH ×2 (08:56→21:13)
[2018-03-17] MEDS: Furosemide 20 MG Tablet PO SCH (08:56)
[2018-03-17] MEDS: Senna/Docusate Sodium 8.6/50 MG Tablet PO SCH ×2 (08:56→21:14)
[2018-03-17] MEDS: Sodium Chloride 1 GM Tablet PO SCH ×3 (08:56→17:33)
[2018-03-17] MEDS: Umeclindinium 62.5 MCG/Vilanterol 25 MCG Inhaler INH SCH (09:01)
--- NOTE | 2018-03-17 13:41 | P.CONID ---
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, poor historian admiitted for reportedly SOB s/p recent admission + abx exposure (rocephine) CXR, head CT and VQ scan were negative Pt c/o worsening abdominal pain (8/10) and diarrhea x 3 days 6 liquid BMs over 24 hrs On admission leukocytosis 16 K, this am 28 K NO fever no cough, + nausea, no vomiting Review of Systems All other systems reviewed negative except as stated in HPI PMFSH - History History Provided By: Medical Record - Medical History Medical History: Medical History (Last Reviewed 03/17/18 @ 13:30 by Socorro Delacruz MD) Blind COPD (chronic obstructive pulmonary disease) Chronic kidney disease (CKD) Emphysema of lung HTN (hypertension) Mitral valve insufficiency Surgical history unknown - Family History Family History: Family History (Last Reviewed 03/17/18 @ 13:30 by Socorro Delacruz MD) Other Family history unknown - Social History I have reviewed the patient's Social History: Yes - Tobacco History Second Hand Smoke Exposure: No Smoking Status: Former smoker - Alcohol History How Often Do You Have a Drink Containing Alcohol: Never - Substance Use History Substance History: No History of Abuse - Travel History Recent Travel in the [place] Within the Last 8 Weeks: No Recent Travel Out of the Country Within the Last 8 Weeks: No - Immunization History Tetanus Immunization: Unsure Hx Influenza Vaccine This Season: Unable to Assess Medications and Allergies Active Medications: Active Medications Acetaminophen (Tylenol) 650 mg PO Q4H PRN PRN Reason: Pain/Temp elevation Al Hydroxide/Mg Hydroxide (Milk Of Lydia Liq) 30 ml PO Q12H PRN PRN Reason: Mild Constipation Albuterol (Duoneb Neb (Prn)) 1 ampul NEB Q3HR NEB PRN PRN Reason: Cough/Congestion Albuterol (Ventolin Hfa Inh) 1 puff INH Q2HR PRN PRN Reason: SHORTNESS OF BREATH Aspirin (Ecotrin) 81 mg PO DAILY [facility] Last Admin: 03/17/18 08:56 Dose: 81 mg Bisacodyl (Dulcolax Supp) 10 mg RECTAL DAILY PRN PRN Reason: SEVERE CONSITIPATION Clonidine HCl (Catapres) 0.1 mg PO Q6H PRN PRN Reason: SBP>160, DBP>90 Fludrocortisone Acetate (Florinef) 0.1 mg PO DAILY [facility] Last Admin: 03/17/18 08:56 Dose: 0.1 mg Furosemide (Lasix) 40 mg PO DAILY [facility] Last Admin: 03/17/18 08:56 Dose: 40 mg Heparin Sodium (Porcine) (Heparin Inj) 5,000 units SQ Q12H [facility] Last Admin: 03/17/18 01:28 Dose: 5,000 units Ceftriaxone Sodium 1,000 mg/ (Sodium Chloride) 100 mls @ 200 mls/hr IV.SIG Q24H [facility] Last Infusion: 03/16/18 18:43 Dose: Infused Lactulose (Lactulose Liq) 30 ml PO DAILY PRN PRN Reason: SEVERE CONSITIPATION Melatonin (Melatonin) 5 mg PO HS PRN PRN Reason: Sleep Last Admin: 03/17/18 01:28 Dose: 5 mg Metoprolol Tartrate (Lopressor) 50 mg PO BID [facility] Last Admin: 03/17/18 08:56 Dose: 50 mg Ondansetron HCl (Zofran Inj) 4 mg IV.PUSH Q6H PRN PRN Reason: NAUSEA OR VOMITING Potassium Chloride (K-Dur) 40 meq PO DAILY [facility] Last Admin: 03/17/18 08:56 Dose: 40 meq Senna/Docusate Sodium (Mary Lou-Colace) 1 tab PO BID [facility] Last Admin: 03/17/18 08:56 Dose: 1 tab Sennosides (Senokot) 17.2 mg PO Q12H PRN PRN Reason: Moderate Constipation Sodium Chloride (Ns Flush) 2 ml IV.FLUSH UNSCH PRN PRN Reason: FLUSH AFTER USING IV ACCESS Last Admin: 03/16/18 20:22 Dose: 2 ml Sodium Chloride (Sodium Chloride) 1 gm PO TID [facility] Last Admin: 03/17/18 08:56 Dose: 1 gm Temazepam (Restoril) 7.5 mg PO HS [facility] Last Admin: 03/16/18 20:21 Dose: 7.5 mg Trazodone HCl (Desyrel) 75 mg PO HS [facility] Last Admin: 03/16/18 20:22 Dose: 75 mg Umeclidinium/Vilanterol (Anoro-Ellipta 62.5/25 Mcg Inh) 1 puff INH DAILY [facility] Last Admin: 03/17/18 09:01 Dose: 1 puff Vitamin D (Vitamin D3) 1,000 unit PO DAILY [facility] Last Admin: 03/17/18 08:56 Dose: 1,000 unit Allergies Allergy/AdvReac Type Severity Reaction Status Date / Time morphine Allergy Unknown unknown Verified 03/14/18 17:55 Sulfa (Sulfonamide Allergy Unknown unknown Verified 03/14/18 17:55 Antibiotics) Home Medications Medication Instructions Recorded Confirmed Type albuterol sulfate [Ventolin HFA] 1 puff INHALATION Q2HR PRN 03/07/18 03/14/18 History aspirin 81 mg PO DAILY 03/07/18 03/14/18 History cholecalciferol (vitamin D3) 1,000 unit PO DAILY 03/07/18 03/14/18 History [Vitamin D3] fludrocortisone 0.1 mg PO DAILY 03/07/18 03/14/18 History ginkgo biloba 60 mg PO DAILY 03/07/18 03/14/18 History ipratropium-albuterol 3 ml INHALATION Q3HR PRN 03/07/18 03/14/18 History metoprolol tartrate 50 mg PO BID 03/07/18 03/14/18 History multivitamin 1 tab PO DAILY 03/07/18 03/14/18 History potassium chloride 20 meq PO BID 03/07/18 03/14/18 History simethicone 160 mg PO Q6HR PRN 03/07/18 03/14/18 History sodium chloride 1,000 mg PO TID 03/07/18 03/14/18 History trazodone 75 mg PO HS 03/07/18 03/14/18 History umeclidinium-vilanterol [Anoro 1 puff INHALATION DAILY 03/07/18 03/14/18 History Ellipta] ibuprofen 600 mg PO TID 03/14/18 03/14/18 History loperamide [Imodium A-D] 1 tab PO Q6H PRN 03/14/18 03/14/18 History melatonin 2 tab PO HS PRN 03/14/18 03/14/18 History temazepam [Restoril] 1 tab PO HS 03/14/18 03/14/18 History Exam Vital signs: Vital Signs 03/16/18 16:00 03/16/18 20:00 03/17/18 00:00 Temperature 97.4 F L 97.8 F 98.2 F Pulse Rate 98 H 91 H 87 Respiratory Rate 16 18 18 Blood Pressure 101/56 L 136/68 Pulse Oximetry 90 L 99 96 03/17/18 08:00 Temperature 97.9 F Pulse Rate 92 H Respiratory Rate 19 Blood Pressure 108/65 Pulse Oximetry 95 Intake & Output 03/16/18 03/17/18 03/17/18 18:59 06:59 18:59 Intake Total 1100 / 1100 240 / 240 Balance 1100 / 1100 240 / 240 Weight 70.1 kg Intake: IV 100 / 100 Rocephin Inj 1,000 MG In NS Inj 100 / 100 100 ML @ 200 mls/hr IV.SIG Q24H [facility] Rx#:[id number] Oral 1000 / 1000 240 / 240 Other: # Voids 4 6 Date of Last Bowel Movement 03/16/18 03/16/18 # Bowel Movements 4 # Incontinent Bowel Movements 6 - Constitutional moderate distress, average body habitus, chronically ill appearing Comments: in position - Routine HEENT Exam Head: Present: normocephalic, atraumatic Eye: Present: cataracts. Absent: PERRL, normal accommodation ENT: Present: mucous membranes dry. Absent: dentition normal (poor) Comments: opacified pupils - Routine Neck Exam Present: supple. Absent: JVD, lymphadenopathy - Routine Respiratory Exam Present: decreased breath sounds, CTA bilaterally. Absent: accessory muscle use , respiratory distress, rhonchi - Routine Cardiovascular Exam Present: RRR, S1, S2. 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 Absent: rebound, firm, organomegaly, mass - Routine Extremities Exam Present: normal capillary refill. Absent: cyanosis, clubbing, edema - Routine Skin Exam Present: intact, warm. Absent: rash - Routine Neurological Exam Present: alert, sensory deficit (blind, [place]), moving all extremities, normal speech. Absent: oriented X3 (oriented at least x 2), CN II-XII intact, vision grossly intact, hearing grossly intact - Routine Psychiatric Exam Present: cooperative. Absent: visual hallucinations, agitated Results - Labs CBC & Chem 7: 03/17/18 05:23 03/17/18 05:23 Labs: Laboratory Results - last 24 hr 03/16/18 03/16/18 03/17/18 16:04 23:36 05:23 WBC 28.0 H D RBC 3.16 L Hgb 9.8 L Hct 30.1 L MCV 95.3 MCH 31.2 MCHC 32.7 RDW 14.0 Plt Count 416 MPV 8.4 Neut % (Auto) 89.4 H Lymph % (Auto) 4.8 L [place] % (Auto) 5.7 Eos % (Auto) 0.0 Baso % (Auto) 0.1 Neut # (Auto) 25.0 H Lymph # (Auto) 1.4 [place] # (Auto) 1.6 H Eos # (Auto) 0.0 Baso # (Auto) 0.0 WBC Differential . Differential Comment Auto diff final Sodium Potassium 3.2 L Chloride Carbon Dioxide Anion Gap BUN Creatinine Estimated GFR Random Glucose Calcium Urine Color Yellow Urine Clarity Clear Urine pH 5.0 Ur Specific [place] 1.009 Urine Protein Negative Urine Glucose (UA) Negative Urine Ketones Negative Urine Occult Blood Negative Urine Nitrate Negative Urine Bilirubin Negative Urine Urobilinogen Less than 2 Ur Leukocyte Esterase Negative Urine RBC Less than 1 Urine WBC 1 Urine Bacteria Rare H Hyaline Casts 9 Urine Mucus Few H Micro UA Comment Culture not ind Ur Microscopic Review Not Reportable Urine Culture Comments Culture not ind 03/17/18 05:23 WBC RBC Hgb Hct MCV MCH MCHC RDW Plt Count MPV Neut % (Auto) Lymph % (Auto) [place] % (Auto) Eos % (Auto) Baso % (Auto) Neut # (Auto) Lymph # (Auto) [place] # (Auto) Eos # (Auto) Baso # (Auto) WBC Differential Differential Comment Sodium 145 Potassium 3.6 Chloride 111 H Carbon Dioxide 23.8 Anion Gap 10 BUN 37 H Creatinine 1.82 H Estimated GFR 26 L Random Glucose 122 H Calcium 8.7 Urine Color Urine Clarity Urine pH Ur Specific [place] Urine Protein Urine Glucose (UA) Urine Ketones Urine Occult Blood Urine Nitrate Urine Bilirubin Urine Urobilinogen Ur Leukocyte Esterase Urine RBC Urine WBC Urine Bacteria Hyaline Casts Urine Mucus Micro UA Comment Ur Microscopic Review Urine Culture Comments - Imaging Chest X-Ray 03/14/18 17:58 CONCLUSION: No acute cardiopulmonary process. Head CT 03/14/18 17:59 CONCLUSION: 1. No acute intracranial abnormality. 2. Atrophy. 3. Chronic stable change of the left globe. . Pulmonary Perfusion Imaging 03/14/18 19:21 CONCLUSION: Low probability for pulmonary embolus with 2 small matched defects. Assessment and Plan - Plan Leukocytosis, severe abdominal pain and liquid diarrhea Recent abx exposure Multiple med problems from senior living COPD CKD The whole clinical picture is very suspicious for C.diff colitis will start IV flagyl, PO vanco P C.diff stool for C.diff CT A/P and cjhest wo IV contrasrt stop CTX P furter results will follow results of CT , KUB and c.diff
[2018-03-17] MEDS ORDERED: Diatrizoate Meglum/Diatrizoate Sod Liq 9 ML UDC PO ONE (14:30)
--- NOTE | 2018-03-17 14:53 | P.PN ---
Subjective Interval history: This is a pleasant 87 y/o Female with Blindness, CKD, COPD, Hypertension, presents to the emergency department for the evaluation of altered mental status with accompanying chest pain/shortness of breath. The patient was recently hospitalized for multiple metabolic disturbances with altered mental status. At the time of our interview, the patient is only able to tell me that she needs help. She cannot tell me why she is here. She is alert and oriented to self only. She is hypertensive to 234/107 and severely agitated. Her troponin is elevated initially to 0.13 today 0.18 and then 0.17 for equivocal troponin level, discussed with nurse, with Utilization management, she meets observation criteria and I agree, asked for tea room manager for discharge to SNF and also for PT evaluation. 03/16:patient stable discussed with nurse with patient she is stable and ready to go to her Assisted. no nausea, vomit or diarrhea potassium replaced will continue diuretics and follow by PCP as outpatient. the patient developed Leukocytosis no clear source of infection started on Ceftriaxone and following. blood cultures asked, Urinalysis. 03/17: Seen in her bedroom, discussed with nurse Miss Wing, the patient developed Diarrhea today, Urinalysis asked by me negative, probable abdominal source of infection, Creatinine from 1.65 to 1.82, Potassium level 3.6 giving one dose of Potassium today. asked for ID specialist consult Seen by Doctor Socorro Delacruz appreciated, because the patient had recent antibiotic exposure started on Flagyl, suspicious for C Diff colitis asked for CT A/P and chest wo IV contrast, Stop Ceftriaxone. Following CT, KUB and C Diff. Physical Exam Vital signs: Vital Signs 03/16/18 16:00 03/16/18 20:00 03/17/18 00:00 Temperature 97.4 F L 97.8 F 98.2 F Pulse Rate 98 H 91 H 87 Respiratory Rate 16 18 18 Blood Pressure 101/56 L 136/68 Pulse Oximetry 90 L 99 96 03/17/18 08:00 03/17/18 12:00 Temperature 97.9 F 97.7 F Pulse Rate 92 H 78 Respiratory Rate 19 18 Blood Pressure 108/65 167/76 H Pulse Oximetry 95 96 Intake & Output 03/16/18 03/17/18 03/17/18 18:59 06:59 18:59 Intake Total 1100 / 1100 240 / 240 Balance 1100 / 1100 240 / 240 Weight 70.1 kg Intake: IV 100 / 100 Rocephin Inj 1,000 MG In NS Inj 100 / 100 100 ML @ 200 mls/hr IV.SIG Q24H [facility] Rx#:[id number] Oral 1000 / 1000 240 / 240 Other: # Voids 4 6 Date of Last Bowel Movement 03/16/18 03/16/18 # Bowel Movements 4 # Incontinent Bowel Movements 6 Narrative: Gen.: No distress. Head: Normocephalic. Atraumatic. EENT: Pupils equal round and reactive to light. Nose without drainage. Airway intact. Throat without injection. Blindness. Cardiovascular: Regular rate and rhythm. No murmurs, rubs or gallops. Respiratory: Lungs clear to auscultation bilaterally. No wheezes or rhonchi. Abdomen: Soft, nontender, nondistended. No peritoneal signs. Musculoskeletal: No gross deformities. No edema. Skin: No obvious rashes or erythema. Neuro: Sensory and motor grossly intact. Cranial nerves II through XII grossly intact. Results - Labs CBC & Chem 7: 03/17/18 05:23 03/17/18 05:23 Laboratory Results - last 24 hr 03/16/18 03/16/18 03/17/18 16:04 23:36 05:23 WBC 28.0 H D RBC 3.16 L Hgb 9.8 L Hct 30.1 L MCV 95.3 MCH 31.2 MCHC 32.7 RDW 14.0 Plt Count 416 MPV 8.4 Neut % (Auto) 89.4 H Lymph % (Auto) 4.8 L [place] % (Auto) 5.7 Eos % (Auto) 0.0 Baso % (Auto) 0.1 Neut # (Auto) 25.0 H Lymph # (Auto) 1.4 [place] # (Auto) 1.6 H Eos # (Auto) 0.0 Baso # (Auto) 0.0 WBC Differential . Differential Comment Auto diff final Sodium Potassium 3.2 L Chloride Carbon Dioxide Anion Gap BUN Creatinine Estimated GFR Random Glucose Calcium Urine Color Yellow Urine Clarity Clear Urine pH 5.0 Ur Specific [place] 1.009 Urine Protein Negative Urine Glucose (UA) Negative Urine Ketones Negative Urine Occult Blood Negative Urine Nitrate Negative Urine Bilirubin Negative Urine Urobilinogen Less than 2 Ur Leukocyte Esterase Negative Urine RBC Less than 1 Urine WBC 1 Urine Bacteria Rare H Hyaline Casts 9 Urine Mucus Few H Micro UA Comment Culture not ind Ur Microscopic Review Not Reportable Urine Culture Comments Culture not ind 03/17/18 05:23 WBC RBC Hgb Hct MCV MCH MCHC RDW Plt Count MPV Neut % (Auto) Lymph % (Auto) [place] % (Auto) Eos % (Auto) Baso % (Auto) Neut # (Auto) Lymph # (Auto) [place] # (Auto) Eos # (Auto) Baso # (Auto) WBC Differential Differential Comment Sodium 145 Potassium 3.6 Chloride 111 H Carbon Dioxide 23.8 Anion Gap 10 BUN 37 H Creatinine 1.82 H Estimated GFR 26 L Random Glucose 122 H Calcium 8.7 Urine Color Urine Clarity Urine pH Ur Specific [place] Urine Protein Urine Glucose (UA) Urine Ketones Urine Occult Blood Urine Nitrate Urine Bilirubin Urine Urobilinogen Ur Leukocyte Esterase Urine RBC Urine WBC Urine Bacteria Hyaline Casts Urine Mucus Micro UA Comment Ur Microscopic Review Urine Culture Comments Assessment and Plan - Plan Mitral valve insufficiency Surgical history unknown 1. Elevated troponin equivocal troponin level initial was 0.13 then 0.18 and then 0.17 Likely secondary to chronic kidney disease EKG without signs of ischemia, personally reviewed ACS ruled out. 2. Hypertensive urgency Improved Resolved Continue home antihypertensives Clonidine as needed 3. COPD/Emphysema Duo nebs as needed 4. CHF BNP 855 today his Creatinine is went up from 1.65 to 1.82 on hold Lasix and pending to start IV fluids if needed due to Diarrhea. she is eating and drinking 5. CKD IV stable Creatinine today 1.65 6. Hypokalemia replaced today 3.6 given Potassium will follow in am with Magnesium, Potassium and Phosphorus. 7. Leukocytosis 03/17: the patient developed Diarrhea today, Urinalysis asked by me negative, probable abdominal source of infection, asked for ID specialist consult Seen by Doctor Socorro Delacruz appreciated , because the patient had recent antibiotic exposure started on Flagyl, suspicious for C Diff colitis asked for CT A/P and chest wo IV contrast, Stop Ceftriaxone. Following CT, KUB and C Diff. FEN N.p.o. Electrolytes: Monitor and replete as needed Heparin Code Status: Full Code. Discussed Condition With: Patient and nurse Miss Wing. Discharge Planning: Once cleared by ID specialist.
--- NOTE | 2018-03-17 19:34 | CT ---
EXAM DATE: 03/17/2018 6:56 PM EDT AGE/SEX: 87 years / Female INDICATIONS: Colitis. CLINICAL DATA: This is the patient's initial encounter. Patient reports that signs and symptoms have been present for 1 day and indicates a pain score of Nonresponsive. MEDICAL/SURGICAL HISTORY: Chronic obstructive pulmonary disease. Hypertension. Renal disease. Mitral valve insufficiency None. RADIATION DOSE: 16.86 CTDI (mGy) ; Combined studies COMPARISON: No prior exams available for comparison. TECHNIQUE: Multiple contiguous axial images were obtained through the abdomen. Images were obtained using multiple row detector helical technique. Using automated exposure control and adjustment of the mA and/or kV according to patient size, radiation dose was kept as low as reasonably achievable to o btain optimal diagnostic quality images. DICOM format image data is available electronically for rev iew and comparison. FINDINGS: Abdomen CT: The liver, spleen, pancreas, kidneys, adrenals are unremarkable. There is no evidence for any appreci able pathological adenopathy, free fluid, or bowel obstruction. Slight scarring and chronic degenerat eduarda changes in both lung bases. 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 There is compression defo rmity of T12 not adequately characterized with slight retropulsed fragment without any significant th ecal sac stenosis at this level with approximate 80% reduction in the mid height. There is also osteo porotic superior endplate depressions of L2 on L3 with approximate 40-50% reduction in the mid height of these vertebrae. There is evidence for prior cholecystectomy. Chronic vascular atherosclerotic calcifications are seen involving the aorta. Pelvic CT: There is no evidence for mass, abscess formation, or any significant adenopathy within the pelvis. Th ere are degenerative changes and possible disc bulge involving lower lumbosacral spine mainly at L4-5 and L5-S1 not adequately characterized. There are numerous diverticuli within the colon mainly the sigmoid colon without signs of diverticuli tis for technique. CONCLUSION: Osteoporotic compression deformities of T12, L2, L3 worse at T12, chronic vascular calcif ications and colonic diverticuli. Electronically signed by: Tang Patrick MD 03/17/2018 7:33 PM EDT
--- NOTE | 2018-03-17 19:42 | CT ---
EXAM DATE: 03/17/2018 6:57 PM EDT AGE/SEX: 87 years / Female INDICATIONS: Pleural effusion; abnormal chest x-ray. CLINICAL DATA: This is the patient's subsequent encounter. Patient reports that signs and symptoms h ave been present for 2 days and indicates a pain score of Nonresponsive. MEDICAL/SURGICAL HISTORY: Chronic obstructive pulmonary disease. Hypertension. Renal disease. Mi tral valve insufficiency None. RADIATION DOSE: 16.86 CTDI (mGy) ; Combined studies COMPARISON: [facility], CHEST 1V SINGLE AP, 03/14/2018. . TECHNIQUE: Multiple contiguous axial images were obtained through the chest without contrast. Image s were obtained in suspended respiration using multiple row detector helical technique. Using automa dimitry exposure control and adjustment of the mA and/or kV according to patient size, radiation dose was kept as low as reasonably achievable to obtain optimal diagnostic quality images. DICOM format imag e data is available electronically for review and comparison. FINDINGS: Lungs: There is mild prominence of interstitium seen throughout the most prominent at the posterior lower lungs. There is a faint 0.6 cm focal nodule in the posterior left lateral left lower lung. Mediastinum: There is good visualization of the great vessels of the middle mediastinum. No evidenc e of mediastinal or hilar adenopathy/mass. Coronary artery calcifications are present. Pleurae: No evidence of focal thickening or pleural effusion. Axillae: Unremarkable. Bony Structures: There is a fracture of the lateral left seventh rib. There is degenerative change i n the lower thoracic spine. There is a fracture deformity at L1. There is retropulsion of the posteri or superior aspect of the L1 vertebral body causing at least a mild impression on the thecal sac. The age of this deformity is not known. Miscellaneous: The examination was extended to include the upper abdomen, and both adrenal glands ar e normal in size and configuration. CONCLUSION: 1. Mild prominence of interstitium likely related to underlying interstitial disease. 2. 6 mm focal nodule in the left lower lobe. This should be followed with a noncontrast CT examinati on 6 months. 3. L1 vertebral body fracture deformity with some retropulsion of the posterior superior L1 vertebra l body. The age of this deformity is not known. 4. Left seventh rib fracture. Electronically signed by: Geraldo Jacobs MD 03/17/2018 7:41 PM EDT
[2018-03-17] MEDS: traZODone 50 MG Tablet PO SCH (21:14)
[2018-03-18] MEDS: Heparin - SQ 10,000 UNITS/ML Vial SQ SCH ×2 (00:52→12:46)
[2018-03-18 06:07] LABS: Hematocrit 31.6 % (35.0-46.0); Hemoglobin 10.3 gm/dL (11.6-15.3); Mean Corpuscular HGB Conc 32.5 % (32.0-36.0); Mean Corpuscular Hemoglobin 31.1 pg (27.0-34.0); Mean Corpuscular Volume 95.5 fL (80.0-100.0); Mean Platelet Volume 8.7 fL (7.0-11.0); Platelet Count 388 th/mm3 (150-450); Red Blood Count 3.31 mil/mm3 (4.00-5.30); Red Cell Distribution Width 14.4 % (11.6-17.2); White Blood Count 24.1 th/mm3 (4.0-11.0)
[2018-03-18 06:14] LABS: Calcium 8.1 mg/dL (8.5-10.1); Carbon Dioxide 22.7 meq/L (21.0-32.0); Magnesium 1.7 mg/dL (1.5-2.5); Phosphorus 3.2 mg/dL (2.5-4.9); Potassium 3.9 meq/L (3.5-5.1)
[2018-03-18] MEDS: Senna/Docusate Sodium 8.6/50 MG Tablet PO SCH ×2 (10:23→21:19)
[2018-03-18] MEDS: Sodium Chloride 1 GM Tablet PO SCH ×3 (10:23→17:11)
[2018-03-18] MEDS: Metoprolol Tartrate 50 MG Tablet PO SCH ×2 (10:23→21:19)
[2018-03-18] MEDS: Umeclindinium 62.5 MCG/Vilanterol 25 MCG Inhaler INH SCH (10:24)
[2018-03-18] MEDS: Dextrose 5% in Water Inj 1,000 ML IV.CONT SCH (14:00)
--- NOTE | 2018-03-18 15:32 | P.PNID ---
Subjective Remarks: somewhat better C.diff + CT A/P w/o acute pathology No consolidations on chest CT WBC down to 24 K Antibiotics: flagyl IV vanco po Allergies/Adverse Reactions: Allergies morphine Allergy (Unknown, Verified 03/14/18 17:55) unknown Sulfa (Sulfonamide Antibiotics) Allergy (Unknown, Verified 03/14/18 17:55) unknown Objective Vital Signs 03/17/18 16:00 03/17/18 20:00 03/18/18 00:00 Temperature 97.2 F L 97.4 F L 97.5 F L Pulse Rate 86 78 75 Respiratory Rate 18 18 18 Blood Pressure 179/74 H 140/80 114/53 L Pulse Oximetry 100 97 96 03/18/18 04:00 03/18/18 08:00 03/18/18 12:00 Temperature 97.7 F 97.6 F Pulse Rate 89 83 79 Respiratory Rate 19 18 Blood Pressure 106/53 L 94/54 L Pulse Oximetry 95 100 Intake & Output 03/17/18 03/18/18 03/18/18 18:59 06:59 18:59 Intake Total 340 / 340 100 / 100 340 / 340 Output Total 2 / 2 Balance 340 / 340 98 / 98 340 / 340 Weight 70.1 kg Intake: IV 100 / 100 100 / 100 100 / 100 Flagyl 500 MG Inj 100 ML @ 100 100 / 100 100 / 100 100 / 100 mls/hr IV.SIG Q8H [facility] Rx#: [id number] Oral 240 / 240 240 / 240 Output: Urine 2 / 2 Other: # Voids 4 1 Date of Last Bowel Movement 03/17/18 03/18/18 # Bowel Movements 4 2 1 Lab - Hematology Results 03/17/18 03/18/18 05:23 05:07 WBC 28.0 H D 24.1 H RBC 3.16 L 3.31 L Hgb 9.8 L 10.3 L Hct 30.1 L 31.6 L MCV 95.3 95.5 MCH 31.2 31.1 MCHC 32.7 32.5 RDW 14.0 14.4 Plt Count 416 388 MPV 8.4 8.7 Neut % (Auto) 89.4 H Lymph % (Auto) 4.8 L Morgan % (Auto) 5.7 Eos % (Auto) 0.0 Baso % (Auto) 0.1 Neut # (Auto) 25.0 H Lymph # (Auto) 1.4 Morgan # (Auto) 1.6 H Eos # (Auto) 0.0 Baso # (Auto) 0.0 WBC Differential . Differential Comment Auto diff final Lab - Chemistry Results 03/16/18 03/17/18 03/18/18 16:04 05:23 05:07 Sodium 145 150 H Potassium 3.2 L 3.6 3.9 Chloride 111 H 115 H Carbon Dioxide 23.8 22.7 Anion Gap 10 12 BUN 37 H 31 H Creatinine 1.82 H 1.55 H Estimated GFR 26 L 32 L Random Glucose 122 H 104 Calcium 8.7 8.1 L Phosphorus 3.2 Magnesium 1.7 Imaging: ITS Impressions Chest X-Ray 03/14/18 17:58 CONCLUSION: No acute cardiopulmonary process. Head CT 03/14/18 17:59 CONCLUSION: 1. No acute intracranial abnormality. 2. Atrophy. 3. Chronic stable change of the left globe. . Pulmonary Perfusion Imaging 03/14/18 19:21 CONCLUSION: Low probability for pulmonary embolus with 2 small matched defects. 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 Chest CT 03/17/18 13:31 CONCLUSION: 1. Mild prominence of interstitium likely related to underlying interstitial disease. 2. 6 mm focal nodule in the left lower lobe. This should be followed with a noncontrast CT examination 6 months. 3. L1 vertebral body fracture deformity with some retropulsion of the posterior superior L1 vertebral body. The age of this deformity is not known. 4. Left seventh rib fracture. Physical Exam: GENERAL: NAD SKIN: Warm and dry. NO rash EYES: Pupils opacified b/l ENT: Mucous membranes pink and moist. CARDIOVASCULAR: Regular rate and rhythm. no murmurs RESPIRATORY: No accessory muscle use. Clear to auscultation. Breath sounds equal bilaterally. GASTROINTESTINAL: Abdomen soft, tender in LLQ, nondistended. Hepatic and splenic margins not palpable. MUSCULOSKELETAL: Extremities without clubbing, cyanosis, or edema. NEUROLOGICAL: Awake and alert. Blind and CADDO Folowing commands Normal speech. Approprietly answers questions when hears PSYCHIATRIC: agitated and frustrated 2/2 communication barriers Assessment and Plan - Plan C.diff - confirmed Leukocytosis, severe abdominal pain and liquid diarrhea 2/2 c,diff - improves with tx - Recent abx exposure - risk factor Multiple med problems from senior care COPD CKD cont IV flagyl, PO vanco avoid systemic abx IV flagyl can be stoopped in the next 48 hrs if con to improve clinically anticipate 2 weeks of oral vancomyicn felipa Pham
--- NOTE | 2018-03-18 16:33 | P.PN ---
Subjective Interval history: Follow-up for colitis. Patient is currently resting in bed. She answers some questions appropriately. However she screams and demands to get a towel to get her right shoulder dry. She denies any fever. She reports improvement of her abdominal pain and diarrhea. Physical Exam Vital signs: Vital Signs 03/17/18 20:00 03/18/18 00:00 03/18/18 04:00 Temperature 97.4 F L 97.5 F L Pulse Rate 78 75 89 Respiratory Rate 18 18 Blood Pressure 140/80 114/53 L Pulse Oximetry 97 96 03/18/18 08:00 03/18/18 12:00 Temperature 97.7 F 97.6 F Pulse Rate 83 79 Respiratory Rate 19 18 Blood Pressure 106/53 L 94/54 L Pulse Oximetry 95 100 Intake & Output 03/17/18 03/18/18 03/18/18 18:59 06:59 18:59 Intake Total 340 / 340 100 / 100 340 / 340 Output Total 2 / 2 Balance 340 / 340 98 / 98 340 / 340 Weight 70.1 kg Intake: IV 100 / 100 100 / 100 100 / 100 Flagyl 500 MG Inj 100 ML @ 100 100 / 100 100 / 100 100 / 100 mls/hr IV.SIG Q8H [facility] Rx#: [id number] Oral 240 / 240 240 / 240 Output: Urine 2 / 2 Other: # Voids 4 1 Date of Last Bowel Movement 03/17/18 03/18/18 # Bowel Movements 4 2 1 Narrative: GENERAL: Patient is blind, she is a screening and demanding a towel. However she is not in any acute distress. SKIN: Warm and dry. HEAD: Normocephalic. EYES: No scleral icterus. No injection or drainage. NECK: Supple, trachea midline. No JVD or lymphadenopathy. CARDIOVASCULAR: Regular rate and rhythm without murmurs, gallops, or rubs. RESPIRATORY: Breath sounds equal bilaterally. No accessory muscle use. GASTROINTESTINAL: Abdomen soft, mild abdominal pain on palpation, nondistended. MUSCULOSKELETAL: No cyanosis, or edema. BACK: Nontender without obvious deformity. No CVA tenderness. Results - Labs CBC & Chem 7: 03/18/18 05:07 03/18/18 05:07 Laboratory Results - last 24 hr 03/17/18 03/18/18 03/18/18 16:15 05:07 05:07 WBC 24.1 H RBC 3.31 L Hgb 10.3 L Hct 31.6 L MCV 95.5 MCH 31.1 MCHC 32.5 RDW 14.4 Plt Count 388 MPV 8.7 Sodium 150 H Potassium 3.9 Chloride 115 H Carbon Dioxide 22.7 Anion Gap 12 BUN 31 H Creatinine 1.55 H Estimated GFR 32 L Random Glucose 104 Calcium 8.1 L Phosphorus 3.2 Magnesium 1.7 Stool C.difficile Ag Positive H Stool C.difficile Toxin Positive H Stl C.difficile DNA Amp Positive H St C. 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 Chest CT 03/17/18 13:31 CONCLUSION: 1. Mild prominence of interstitium likely related to underlying interstitial disease. 2. 6 mm focal nodule in the left lower lobe. This should be followed with a noncontrast CT examination 6 months. 3. L1 vertebral body fracture deformity with some retropulsion of the posterior superior L1 vertebral body. The age of this deformity is not known. 4. Left seventh rib fracture. Assessment and Plan - Plan This is a pleasant 87 y/o Female with Blindness, CKD, COPD, Hypertension, presents to the emergency department for the evaluation of altered mental status with accompanying chest pain/shortness of breath. She was found to have significant leukocytosis. She was diagnosed with C. difficile colitis. Infectious disease was consulted and patient was a started on IV metronidazole as well as p.o. vancomycin. Severe sepsis (heart rate was 90, respiration rate over 20, WBC over 14,000, suspected infection C. difficile colitis) C. difficile colitis, severe -Appreciate input from infectious disease. Patient is currently on IV Flagyl as well as p.o. vancomycin. -Clinically improving. Acute kidney injury Hyponatremia -Creatinine on admission was 2.0. Currently improved to 1.55. -Sodium 150. -We will start patient on D5W at 84 cc/h. -BMP, CBC in the morning. Elevated troponin -Possibly due to AK I, sepsis COPD -duo nebs as needed Full code. SCDs. Discharge plan: Probably 3-4 more days in the hospital.
[2018-03-18] MEDS: traZODone 50 MG Tablet PO SCH (21:19)
[2018-03-18] MEDS: Melatonin 5 MG Tablet PO PRN (21:20)
[2018-03-19] MEDS: Dextrose 5% in Water Inj 1,000 ML IV.CONT SCH ×2 (01:52→19:52)
[2018-03-19] MEDS: Heparin - SQ 10,000 UNITS/ML Vial SQ SCH ×2 (01:52→14:59)
[2018-03-19 06:16] LABS: Calcium 7.6 mg/dL (8.5-10.1); Carbon Dioxide 21.1 meq/L (21.0-32.0)
[2018-03-19 06:38] LABS: Potassium 2.8 meq/L (3.5-5.1)
[2018-03-19 06:55] LABS: Baso # (Auto) 0.1 th/mm3 (0.0-0.2); Baso % (Auto) 0.6 % (0.0-2.0); Eos # (Auto) 0.2 th/mm3 (0.0-0.4); Eos % (Auto) 1.1 % (0.0-4.0); Hematocrit 26.4 % (35.0-46.0); Hemoglobin 8.7 gm/dL (11.6-15.3); Lymph # (Auto) 1.9 th/mm3 (1.0-4.8); Lymph % (Auto) 12.6 % (9.0-44.0); Mean Platelet Volume 8.9 fL (7.0-11.0); Mono % (Auto) 6.9 % (0.0-8.0); Neut # (Auto) 11.8 th/mm3 (1.8-7.7); Neut % (Auto) 78.8 % (16.0-70.0); Platelet Count 342 th/mm3 (150-450); Red Blood Count 2.72 mil/mm3 (4.00-5.30); Red Cell Distribution Width 14.6 % (11.6-17.2); White Blood Count 14.9 th/mm3 (4.0-11.0)
[2018-03-19 07:22] LABS: Magnesium 1.4 mg/dL (1.5-2.5)
[2018-03-19] MEDS: Umeclindinium 62.5 MCG/Vilanterol 25 MCG Inhaler INH SCH (10:53)
[2018-03-19] MEDS: Sodium Chloride 1 GM Tablet PO SCH ×3 (10:55→18:18)
[2018-03-19] MEDS: Senna/Docusate Sodium 8.6/50 MG Tablet PO SCH ×2 (10:55→21:20)
[2018-03-19] MEDS: Metoprolol Tartrate 50 MG Tablet PO SCH ×2 (10:55→21:20)
[2018-03-19] MEDS ORDERED: HYDROmorphone PF Inj 2 MG/ML Vial IV.PUSH PRN (14:30)
--- NOTE | 2018-03-19 14:35 | P.PN ---
Subjective Interval history: Follow-up for colitis. Bed. No acute concerns. No fever or chills. Physical Exam Vital signs: Vital Signs 03/18/18 16:00 03/18/18 20:00 03/18/18 20:10 Temperature 97.6 F 97.4 F L Pulse Rate 78 77 Respiratory Rate 18 18 17 Blood Pressure 181/77 H 93/48 L Pulse Oximetry 97 96 03/18/18 23:58 03/19/18 08:00 Temperature 98.1 F 98.1 F Pulse Rate 81 74 Respiratory Rate 22 19 Blood Pressure 112/51 L 146/65 H Pulse Oximetry 93 L 96 Intake & Output 03/18/18 03/19/18 03/19/18 18:59 06:59 18:59 Intake Total 1290 / 1290 1580 / 1580 100 / 100 Balance 1290 / 1290 1580 / 1580 100 / 100 Weight 72 kg Intake: IV 200 / 200 1100 / 1100 100 / 100 D5W Inj 1,000 ML @ 84 mls/hr IV 1000 / 1000 .CONT .[id number] [facility] Rx#:[id number] Flagyl 500 MG Inj 100 ML @ 100 200 / 200 100 / 100 100 / 100 mls/hr IV.SIG Q8H [facility] Rx#: [id number] Oral 1090 / 1090 480 / 480 Other: # Voids 5 4 Date of Last Bowel Movement 03/18/18 03/18/18 03/18/18 # Bowel Movements 2 4 Narrative: GENERAL: Patient is blind, she is a screening and demanding a towel. However she is not in any acute distress. SKIN: Warm and dry. HEAD: Normocephalic. EYES: No scleral icterus. No injection or drainage. NECK: Supple, trachea midline. No JVD or lymphadenopathy. CARDIOVASCULAR: Regular rate and rhythm without murmurs, gallops, or rubs. RESPIRATORY: Breath sounds equal bilaterally. No accessory muscle use. GASTROINTESTINAL: Abdomen soft, mild abdominal pain on palpation, nondistended. MUSCULOSKELETAL: No cyanosis, or edema. BACK: Nontender without obvious deformity. No CVA tenderness. Results - Labs CBC & Chem 7: 03/19/18 04:21 03/19/18 11:25 Laboratory Results - last 24 hr 03/19/18 03/19/18 03/19/18 04:21 04:21 04:21 WBC 14.9 H RBC 2.72 L Hgb 8.7 L Hct 26.4 L MCV 97.0 MCH 32.0 MCHC 33.0 RDW 14.6 Plt Count 342 MPV 8.9 Neut % (Auto) 78.8 H Lymph % (Auto) 12.6 Butts % (Auto) 6.9 Eos % (Auto) 1.1 Baso % (Auto) 0.6 Neut # (Auto) 11.8 H Lymph # (Auto) 1.9 Butts # (Auto) 1.0 H Eos # (Auto) 0.2 Baso # (Auto) 0.1 WBC Differential . Differential Comment Auto diff final Sodium 143 Potassium 2.8 L* D Chloride 110 H Carbon Dioxide 21.1 Anion Gap 12 BUN 36 H Creatinine 1.63 H Estimated GFR 30 L Random Glucose 124 H Calcium 7.6 L Magnesium 1.4 L Cancelled 03/19/18 11:25 WBC RBC Hgb Hct MCV MCH MCHC RDW Plt Count MPV Neut % (Auto) Lymph % (Auto) Butts % (Auto) Eos % (Auto) Baso % (Auto) Neut # (Auto) Lymph # (Auto) Butts # (Auto) Eos # (Auto) Baso # (Auto) WBC Differential Differential Comment Sodium Potassium 3.3 L Chloride Carbon Dioxide Anion Gap BUN Creatinine Estimated GFR Random Glucose Calcium Magnesium Assessment and Plan - Plan This is a pleasant 87 y/o Female with Blindness, CKD, COPD, Hypertension, presents to the emergency department for the evaluation of altered mental status with accompanying chest pain/shortness of breath. She was found to have significant leukocytosis. She was diagnosed with C. difficile colitis. Infectious disease was consulted and patient was a started on IV metronidazole as well as p.o. vancomycin. Severe sepsis (heart rate was 90, respiration rate over 20, WBC over 14,000, suspected infection C. difficile colitis) C. difficile colitis, severe -Appreciate input from infectious disease. Patient is currently on IV Flagyl as well as p.o. vancomycin. -Clinically improving. White blood cell count improved from 24K --> 15K. -Add Dilaudid 0.2mg PRN for abdominal pain. Acute kidney injury Hyponatremia -Creatinine on admission was 2.0. Currently improved to 1.55-->1.63. -Sodium 150 --> 143. -d/c IV D5W. Elevated troponin -Possibly due to CANDICE, sepsis COPD -duo nebs as needed Full code. SCDs. Discharge plan: Possibly in the next 24-48 hours based on ID input.
[2018-03-19] MEDS: traZODone 50 MG Tablet PO SCH (21:20)
[2018-03-20] MEDS: Heparin - SQ 10,000 UNITS/ML Vial SQ SCH ×2 (02:50→14:56)
[2018-03-20] MEDS: Senna/Docusate Sodium 8.6/50 MG Tablet PO SCH (09:40)
[2018-03-20] MEDS: Sodium Chloride 1 GM Tablet PO SCH ×3 (09:40→17:59)
[2018-03-20] MEDS: Metoprolol Tartrate 50 MG Tablet PO SCH (09:40)
[2018-03-20 14:48] VITALS: PULSE 69; RESP 17; O2SAT 96
[2018-03-20] MEDS: Umeclindinium 62.5 MCG/Vilanterol 25 MCG Inhaler INH SCH (15:01)
--- NOTE | 2018-03-20 16:39 | P.DS ---
Date of admission: 03/14/18 22:35 Primary care physician: Marcelino Mosquera MD Attending physician on discharge: Kane Pham Anticipated date of discharge: 03/20/18 Brief History from admission: 87-year-old female with a past medical history significant for blindness, chronic kidney disease, COPD and hypertension presents to the emergency department for the evaluation of altered mental status with accompanying chest pain/shortness of breath. The patient was recently hospitalized for multiple metabolic disturbances with altered mental status. At the time of our interview , the patient is only able to tell me that she needs help. She cannot tell me why she is here. She is alert and oriented to self only. She is hypertensive to 234/107 and severely agitated. Her troponin is elevated to 0.13. DS: Medications - Discharge Medications Prescriptions: vancomycin 125 mg PO QID 14 Days #56 cap DS: Summary Hospital Course: This is a pleasant 87 y/o Female with Blindness, CKD, COPD, Hypertension, presents to the emergency department for the evaluation of altered mental status with accompanying chest pain/shortness of breath. She was found to have significant leukocytosis. She was diagnosed with C. difficile colitis. Infectious disease was consulted and patient was a started on IV metronidazole as well as p.o. vancomycin. Severe sepsis (heart rate was 90, respiration rate over 20, WBC over 14,000, suspected infection C. difficile colitis) C. difficile colitis, severe -Appreciate input from infectious disease. Pt received IV Flagyl as well as p.o. vancomycin. -Clinically improving. White blood cell count improved from 24K --> 15K. Acute kidney injury Hyponatremia -Creatinine on admission was 2.0. Improved to 1.63. -Sodium 150 --> 143. Elevated troponin -Possibly due to CANDICE, sepsis COPD -duo nebs as needed Overall, patient was treated for severe C. difficile colitis. IV Flagyl as well as p.o. vancomycin initially. Her clinical condition as well as labs improved. I discussed with infectious disease doctor on 03/20/2018 who recommended discontinuing IV Flagyl and continuing p.o. vancomycin 125 mg p.o. 4 times daily for 2 weeks. Patient is subsequently discharged to SNF on 2017. - Time Spent with Patient Total time spent providing and/or coordinating discharge services: Less than 30 minutes - Quality: VTE Deep Vein Thrombosis/Pulmonary Embolism Present on Admission: No Exam Vital signs: Vital Signs 03/19/18 20:00 03/20/18 00:00 03/20/18 08:00 Temperature 96.9 F L 97.8 F 97.8 F Pulse Rate 68 65 68 Respiratory Rate 17 17 16 Blood Pressure 103/52 L 124/58 L 134/61 Pulse Oximetry 96 96 97 03/20/18 12:00 Temperature 97.7 F Pulse Rate 69 Respiratory Rate 17 Blood Pressure 124/59 L Pulse Oximetry 96 Intake & Output 03/19/18 03/20/18 03/20/18 18:59 06:59 18:59 Intake Total 100 / 100 1680 / 1680 200 / 200 Balance 100 / 100 1680 / 1680 200 / 200 Weight 72 kg Intake: IV 100 / 100 1200 / 1200 200 / 200 D5W Inj 1,000 ML @ 84 mls/hr IV 1000 / 1000 .CONT .[id number] [facility] Rx#:[id number] Flagyl 500 MG Inj 100 ML @ 100 100 / 100 200 / 200 200 / 200 mls/hr IV.SIG Q8H [facility] Rx#: [id number] Oral 480 / 480 Other: # Voids 4 Date of Last Bowel Movement 03/18/18 03/18/18 03/18/18 # Bowel Movements 3 Narrative: GENERAL: Patient is blind, she is a screening and demanding a towel. However she is not in any acute distress. SKIN: Warm and dry. HEAD: Normocephalic. EYES: No scleral icterus. No injection or drainage. NECK: Supple, trachea midline. No JVD or lymphadenopathy. CARDIOVASCULAR: Regular rate and rhythm without murmurs, gallops, or rubs. RESPIRATORY: Breath sounds equal bilaterally. No accessory muscle use. GASTROINTESTINAL: Abdomen soft, mild abdominal pain on palpation, nondistended. MUSCULOSKELETAL: No cyanosis, or edema. BACK: Nontender without obvious deformity. No CVA tenderness. Results Procedures completed during hospitalization: None. - Impressions ITS Impressions Chest X-Ray 03/14/18 17:58 CONCLUSION: No acute cardiopulmonary process. Head CT 03/14/18 17:59 CONCLUSION: 1. No acute intracranial abnormality. 2. Atrophy. 3. Chronic stable change of the left globe. . Pulmonary Perfusion Imaging 03/14/18 19:21 CONCLUSION: Low probability for pulmonary embolus with 2 small matched defects. 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 Chest CT 03/17/18 13:31 CONCLUSION: 1. Mild prominence of interstitium likely related to underlying interstitial disease. 2. 6 mm focal nodule in the left lower lobe. This should be followed with a noncontrast CT examination 6 months. 3. L1 vertebral body fracture deformity with some retropulsion of the posterior superior L1 vertebral body. The age of this deformity is not known. 4. Left seventh rib fracture. Discharge Plan - Discharge Disposition Patient Disposition: Discharge to SNF - Discharge Condition Condition: Fair - Discharge Order Discharge Orders: Discharge Order (Routine); Ordered 03/20/18 Ordered By: Kane Pham - Discharge Details Anticipated Discharge Date: 03/20/18 Discharge Comment: Discussed with ID on 03/20/2018 - ID clears for discharge. Vanc 125mg PO QID X 2 weeks. - Physicians Team Primary Care Provider: Marcelino Mosquera Attending Provider: Kane Pham Other Providers: Caesar Goins ; Socorro Dealcruz MD
[2018-03-20 17:13] VITALS: BP 126/60; TEMP 97.9
== END 2018-03-20 18:27 ==
LOC: NEPE 17:38 → NEDA 17:38 → N07 03-15 01:57
PROVIDERS: ADMIT Hospitalist; ATTEND Hospitalist
DX: I16.0 Hypertensive urgency; R06.02 Shortness of breath; I34.0 Nonrheumatic mitral (valve) insufficiency; I13.0 Hypertensive heart and chronic kidney disease with heart failure and stage 1 through stage 4 chronic kidney disease, or unspecified chronic kidney disease; Z87.891 Personal history of nicotine dependence; N17.9 Acute kidney failure, unspecified; R45.1 Restlessness and agitation; E87.1 Hypo-osmolality and hyponatremia; H54.7 Unspecified visual loss; R65.20 Severe sepsis without septic shock; J43.9 Emphysema, unspecified; R41.82 Altered mental status, unspecified; Z79.899 Other long term (current) drug therapy; N18.4 Chronic kidney disease, stage 4 (severe); J44.9 Chronic obstructive pulmonary disease, unspecified; I05.9 Rheumatic mitral valve disease, unspecified; I50.9 Heart failure, unspecified; A04.72 Enterocolitis due to Clostridium difficile, not specified as recurrent; Z79.82 Long term (current) use of aspirin